=== PATIENT | female | born 1950 | race Caucasian/White ===

== ENCOUNTER 2016-11-29 12:16 | Inpatient (IN) ==
--- NOTE | 2016-11-29 13:04 | Emergency Department Note ---
Louis Keen Hilary, am scribing for, and in the presence of, Lalo Rondon MD 12: 59. Nela Keen James D, MD, personally performed the services described in this documentation, ascribed by Nu Myers in my presence, and it is both accurate and complete . Arrival - Arrival Chief Complaint: Chest Pain ED Nursing Triage Note: pt was transfered from [facility] for cp and sob Mode of Arrival: Stretcher Limitations: No Limitations Source: Patient, RN Notes Reviewed - History of Present Illness HPI Narrative: Pt is a 66 y/o white female brought into the ED via EMS from [facility] with c/o SOB which onset a few weeks ago. Pt confirms SOB, pain in her left shoulder blade, light headedness, headache and feet swelling but denies fever or nausea. Pt has a PMHx of HTN, NIDDM, Dyslipidemia, Pulmonary Embolism and DVT. No other complaints or problems stated in the ED. Onset (ago): week(s) Consistency: constant Severity: moderate Severity scale (1-10): 2 Allergies/Adverse Reactions: Allergies Allergy/AdvReac Type Severity Reaction Status Date / Time diphtheria,pertussis Allergy Unknown/Unable Verified 11/29/16 12:29 (acellular),te to obtain [From Boostrix Tdap] levofloxacin [From Levaquin] Allergy Unknown/Unable Verified 11/29/16 12:29 to obtain Home Medications: Home Medications Medication Instructions Recorded Confirmed Type Cholecalciferol (Vitamin D3) 50,000 unit PO Q7D 11/29/16 11/29/16 History [Vitamin D3] Citalopram Hydrobromide 20 mg PO DAILY 11/29/16 11/29/16 History [Citalopram HBr] Gabapentin [Gabapentin] 300 mg PO BEDTIME 11/29/16 11/29/16 History Insulin Aspart Prot/Insuln Asp 13 units SUBCUT QPM 11/29/16 11/29/16 History [NovoLOG Mix 70-30 FlexPen] Insulin Aspart Prot/Insuln Asp 17 units SUBCUT QAM 11/29/16 11/29/16 History [NovoLOG Mix 70-30 FlexPen] Metformin HCl [Metformin HCl] 1,000 mg PO BID 11/29/16 11/29/16 History Metoprolol Succinate 100 mg PO BID 11/29/16 11/29/16 History Ranitidine Tab [Zantac Tab] 150 mg PO DAILY 11/29/16 11/29/16 History Rosuvastatin Calcium [Rosuvastatin 20 mg PO BEDTIME 11/29/16 11/29/16 History Calcium] Solifenacin Succinate [Vesicare] 10 mg PO DAILY 11/29/16 11/29/16 History Valsartan/Hydrochlorothiazide 1 each PO DAILY 11/29/16 11/29/16 History [Valsartan-Hctz 320-12.5 mg Tab] Warfarin [Coumadin] 2 mg PO SUTUTHSA 11/29/16 11/29/16 History Warfarin [Coumadin] 3 mg PO MOWEFR 11/29/16 11/29/16 History glyBURIDE [Glyburide] 5 mg PO 1000,1700 11/29/16 11/29/16 History Review of System - Review of System 12 point system: reviewed and no additional remarkable complaints except as stated - Review of System Constitutional: Present: other (light headed). Absent: fever Respiratory: Present: respiratory distress (SOB) Musculoskeletal: Present: other (bilaterally lower swelling) Neurological: Present: headache Medical,Surgical,& Family Hx - Medical History Cardio: History of: Hypertension Endocrine: History of: Diabetes Mellitus (NIDDM), Dyslipidemia Respiratory: History of: Pulmonary Embolism Other: History of: Miscellaneous Medical Problems (dvt) - Social History Smoking Status: Never smoker Frequency of Alcohol Use: None Type of Drug Use: None Exam Physical Examination: GENERAL: This is a well-nourished, well-developed white female in no apparent distress. VITAL SIGNS: Temperature: 97.4 Pulse: 60 Respiratory: 20 Blood Pressure: 160/ 73 O2Sat: 90 HEENT: Head is normocephalic and atraumatic. Pupils are equally round and reactive to light. Extraocular movement are intact. Oropharynx is benign with moist mucous membranes. NECK: Neck is soft and supple without tenderness. There are no masses. There is no lymphadenopathy. LUNGS: Short of breath when she talks and O2 sats are low. Lungs are clear to auscultation bilaterally. Chest rises symmetrically. There is no chest wall tenderness. CV: Heart is regular rate and rhythm without murmurs, rubs, or gallops. ABDOMEN: Abdomen is soft, non-tender to palpation. There are no abnormal masses palpated. There is no organomegaly. Bowel sounds are present and active. SKIN: Skin is warm and dry. No rash. EXTREMITIES: Patient has full range of motion without tenderness. There is no pedal edema. NEUROLOGIC: Awake, alert, and oriented x4. Cranial nerves II through XII are grossly intact. There are no motorsensory deficits. PSYCHIATRIC: Normal affect. Normal mood. Vital Signs: Vital Signs Temperature 97.4 F L 11/29/16 12:23 Pulse Rate 60 11/29/16 12:23 Respiratory Rate 18 11/29/16 12:50 Blood Pressure 160/73 11/29/16 12:23 O2 Sat by Pulse Oximetry 90 L 11/29/16 12:23 Course - Consultations Consultation #1: Discussed with Dr. Urias. Patient will be seen by him in the emergency department. Time: 14:56 Results - Labs Lab Results: I have reviewed the patients labs Labs: Lab performed at [facility] and reviewed by me: Chemistry: Sodium 141, potassium 4.3, CO2 27, chloride 104, BUN 22, creatinine 1.4, glucose 231 Troponin less than 0.017 BNP 247 INR 1.79 CBC: WBCs 4400, hemoglobin 13.5, hematocrit 41.6, platelet count 151,000 Laboratory Tests 11/29/16 13:48 Troponin I < 0.015 - EKG EKG results: interpreted by ERMD - Impressions EKG: Normal sinus rhythm with rate of 54, normal ST-T waves, normal axis. - Diagnostic Findings Procedure: CT: report reviewed by me (CHEST: No evidence of pulmonary thromboembolism) Disposition Clinical Impression: Dyspnea, Chronic anticoagulation, History of DVT (deep vein thrombosis), History of pulmonary thromboembolus, Diabetes mellitus, Essential hypertension Case discussed with: patient Condition: Guarded
[2016-11-29] MEDS ORDERED: ONDANSETRON 4 MG/2 ML VIAL IV STA (13:20)
[2016-11-29] MEDS ORDERED: MORPHINE 2 MG/1 ML SYRINGE IV STA (13:20)
--- NOTE | 2016-11-29 13:29 | CT Report ---
CT of the chest with intravenous contrast, PE protocol. Indication: Dyspnea. Shortness of breath. 80 cc Omni 350. Axial images were obtained with sagittal and coronal reconstructions, 2-D and 3-D. No prior studies. There is a 5 mm hypodensity in the right lobe of the thyroid gland. There is no supraclavicular or axillary lymphadenopathy. The heart is normal in size. There is calcific plaque present within a normal caliber thoracic aorta. There is no evidence of pulmonary thromboembolism. Mild dependent hypoaeration. No consolidation. No suspicious masses. There is no hilar or mediastinal lymphadenopathy. Degenerative changes are noted within the spinal column. Bridging osteophytes are seen within the thoracic spine. Impression: No evidence of pulmonary thromboembolism. The CT exam was performed using one or more of the following dose reduction techniques: Automated exposure control, adjustment of the mA and/or kV according to patient size, or use of iterative reconstruction technique. PROCEDURE INTERPRETED AT [facility]PARTMENT OF RADIOLOG[facility] Final Report Signed by: Dr. Jessica Turner
[2016-11-29] MEDS ORDERED: MORPHINE 2 MG/1 ML SYRINGE ONE ×2 (13:37→22:57)
[2016-11-29] MEDS ORDERED: ONDANSETRON 4 MG/2 ML VIAL ONE (13:37)
--- NOTE | 2016-11-29 14:43 | EKG Report ---
Stationary ECG Study [facility] ER Test Date: 11/29/2016 12:22:03 PM Pat Name: DEBBIE RODRIGUEZ Department: Room: Gender: F Patient Relations Manager: : 1950 Requested by: Hasmukh Villegas Order Number: [id number] Hugo MD: TAMMIE ODEN Intervals [place] Rate: 54 P: 205 [place]: 88 QRS: 43 QRSD: 81 T: 24 QT: 459 QTc: 444 Interpretive Statements NORMAL SINUS RHYTHM, NORMAL ECG Electronically Signed On 11-30-16 07:08:35 CDT by TAMMIE ODEN [email or web address]
[2016-11-29] MEDS ORDERED: diphenhydrAMINE CAP 25 MG CAPSULE PO ONE (15:31)
[2016-11-29] MEDS ORDERED: DIAZEPAM 5 MG TABLET PO ONE (15:31)
[2016-11-29] MEDS ORDERED: GLUCAGON 1 MG VIAL IM PRN (15:32)
[2016-11-29] MEDS ORDERED: DEXTROSE 50% 25 GM/50 ML SYRINGE IV PRN (15:32)
[2016-11-29] MEDS ORDERED: LIDOCAINE 1% 20 ML VIAL ONE (15:33)
[2016-11-29] MEDS ORDERED: HEPARIN/NACL 0.9% 2 UNITS/ML 1,000 ML IV ONE (15:33)
[2016-11-29] MEDS ORDERED: hydrALAZINE 20 MG/1 ML VIAL IV PRN (15:34)
[2016-11-29] MEDS ORDERED: MIDAZOLAM 2 MG/2 ML VIAL ONE ×2 (15:39→16:05)
[2016-11-29] MEDS ORDERED: fentaNYL 100 MCG/2 ML VIAL ONE (15:39)
--- NOTE | 2016-11-29 15:39 | Cardiology History & Physical ---
Assessment and Plan - Time spent with patient Time spent with patient: Greater than 30 minutes (Chart review examination interview orders discussion with Dr. Edwards) (1) Unstable angina Status: Acute Assessment and plan: Except for smoking this patient has every identifiable risk factor for coronary artery disease she is long-standing diabetic hypertensive dyslipidemic with a family history and typical progressive symptoms initiating his fatigue progressing to dyspnea and chest discomfort radiating to the left scapula and down the left arm. She has renal insufficiency minimally with a creatinine of 1.4 she did have a contrast bolus with CT PE protocol to rule out pulmonary embolism there is no evidence of pulmonary embolism. Her INR is 1.79. She has had recurrent DVTs with subtherapeutic INRs and I think given the situation at time currently with escalation of her symptoms now pain at rest we should proceed with left heart catheterization selective coronary angiography possible Paula coronary mention. I discussed risk benefits and options with the patient and her family also discussed with her Lead Nurse physician Dr. Shasta Edwards who will be willing to catheter today. If this is negative we will look for other causes. I feel this represents anginal equivalent in this diabetic hypertensive dyslipidemic female Current Visit: Yes (2) Dyspnea Status: Acute Current Visit: Yes Qualifiers: Dyspnea type: dyspnea on exertion Qualified Code(s): R06.09 - Other forms of dyspnea (3) Chronic anticoagulation Status: Chronic Current Visit: Yes (4) History of DVT (deep vein thrombosis) Status: Chronic Current Visit: Yes (5) Diabetes mellitus Status: Chronic Current Visit: Yes Qualifiers: Diabetes mellitus type: type 2 (6) Essential hypertension Status: Chronic Current Visit: Yes History of Present Illness Chief complaint: Chest pain shortness of breath History of present illness: Ms. White is a 66 year old female patient of Ms. Nakia Cali in [place] who is the nurse for Dr. Brambila in [place]. The patient had at least 3 weeks of severe dyspnea that has even altered her ability to speak in sentences. 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 Brambila clinic the patient has noticed progressive shortness of breath. Because of her history of DVT and pulmonary emboli on chronic anticoagulation therapy she has been attuned to her pulse oxes and states that they have been all okay. She states that the discomfort that she has in her chest and she is very reluctant to use the word pain along with the shortness of breath is distinctly different than the discomfort that she had with her previous pulmonary emboli. She presented to the emergency room at [facility] today from Dr. Brambila's clinic at his insistence because she was unable to speak in complete sentences. She has very carefully not use the word pain or discomfort during the description of her symptoms over the last 3 weeks. She states that that change this morning while in the shower she had pain under her left scapula that went into her left arm which she describes as a numbness. The patient did not have nausea or diaphoresis. Both of her parents had coronary artery disease in their 70s as there cause of . She has known about diagnosis of diabetes since 2005. She has hypertension and dyslipidemia both of which are well treated. She states that she has had at least 4 DVTs in the past and the first in 1983 was associated with pulmonary embolism. Each time her warfarin is stopped she has DVTs. She sleeps on one and a half pillows at night. She has chronic lower extremity edema because of her venous insufficiency wears OLIVA hose every day. Home Medications Medication Instructions Recorded Confirmed Type Cholecalciferol (Vitamin D3) 50,000 unit PO Q7D 11/29/16 11/29/16 History [Vitamin D3] Citalopram Hydrobromide 20 mg PO DAILY 11/29/16 11/29/16 History [Citalopram HBr] Gabapentin [Gabapentin] 300 mg PO BEDTIME 11/29/16 11/29/16 History Insulin Aspart Prot/Insuln Asp 13 units SUBCUT QPM 11/29/16 11/29/16 History [NovoLOG Mix 70-30 FlexPen] Insulin Aspart Prot/Insuln Asp 17 units SUBCUT QAM 11/29/16 11/29/16 History [NovoLOG Mix 70-30 FlexPen] Metformin HCl [Metformin HCl] 1,000 mg PO BID 11/29/16 11/29/16 History Metoprolol Succinate 100 mg PO BID 11/29/16 11/29/16 History Ranitidine Tab [Zantac Tab] 150 mg PO DAILY 11/29/16 11/29/16 History Rosuvastatin Calcium [Rosuvastatin 20 mg PO BEDTIME 11/29/16 11/29/16 History Calcium] Solifenacin Succinate [Vesicare] 10 mg PO DAILY 11/29/16 11/29/16 History Valsartan/Hydrochlorothiazide 1 each PO DAILY 11/29/16 11/29/16 History [Valsartan-Hctz 320-12.5 mg Tab] Warfarin [Coumadin] 2 mg PO SUTUTHSA 11/29/16 11/29/16 History Warfarin [Coumadin] 3 mg PO MOWEFR 11/29/16 11/29/16 History glyBURIDE [Glyburide] 5 mg PO 1000,1700 11/29/16 11/29/16 History Allergies Allergy/AdvReac Type Severity Reaction Status Date / Time diphtheria,pertussis Allergy Unknown/Unable Verified 11/29/16 12:29 (acellular),te to obtain [From Boostrix Tdap] levofloxacin [From Levaquin] Allergy Unknown/Unable Verified 11/29/16 12:29 to obtain - Constitutional Constitutional: Present: fatigue, malaise. Absent: anorexia, chills, fever(s), frequent falls, night sweats, weight gain - EENT Eyes: Absent: blurry vision, diplopia Ears: Absent: decreased hearing, ear discharge Nose, mouth and throat: Present: headache(s). Absent: dysphagia, hoarseness, lip swelling, neck pain, tongue swelling - Cardiovascular Cardiovascular: Present: chest pain at rest, chest pain with activity, dyspnea, dyspnea on exertion, edema, lightheadedness, orthopnea - Respiratory Respiratory: Present: dyspnea, dyspnea on exertion. Absent: cough, hemoptysis, wheezing, snoring - Gastrointestinal Gastrointestinal: Absent: abdominal pain, bloating, constipation, cramping, diarrhea, dyspepsia, dysphagia, heartburn, melena, odynophagia - Genitourinary Genitourinary: Absent: abnormal vaginal bleeding, flank pain, menorrhagia - Musculoskeletal Musculoskeletal: Absent: arthralgias, back pain, joint swelling - Neurological Neurological: Present: headache(s). Absent: abnormal gait, confusion, convulsions, disequilibrium, frequent falls, radicular pain - Psychiatric Psychiatric: Absent: anxiety, depression, homicidal ideation, memory loss, suicidal ideation, visual hallucinations - Endocrine Endocrine: Absent: cold intolerance, heat intolerance - Hematologic/Lymphatic Hematologic/Lymphatic: Absent: easy bleeding, easy bruising Medical,Surgical,& Family Hx - Medical History Cardio: History of: Hypertension Endocrine: History of: Diabetes Mellitus (NIDDM), Dyslipidemia Respiratory: History of: Pulmonary Embolism (With recurrent DVTs) Genitourinary: No history of: Bladder Problem Gastrointestinal: No history of: Bowel Obstruction Other: History of: Miscellaneous Medical Problems (dvt) - Surgical History Abdominal Surgeries: Surgical HX of: Cholecystectomy Reproductive Surgeries: Surgical HX of;: Hysterectomy - Family History Family History: Reports;: Family Heart Disease - Social History Smoking Status: Never smoker Frequency of Alcohol Use: None Type of Drug Use: None Marital Status: Lives With:: Spouse Functional capacity: independent ambulation (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 ) Cardiology Physical Exam - Constitutional Vitals: Vital Signs Temp Pulse Resp BP Pulse Ox 97.4 F L 60 18 160/73 90 L 11/29/16 12:23 11/29/16 12:23 11/29/16 12:50 11/29/16 12:23 11/29/16 12:23 Intake and Output 11/28/16 11/29/16 11/29/16 23:59 07:59 15:59 Intake Total 150 / 150 Balance 150 / 150 Intake: Intake - Additional IV 150 / 150 Volume (mLs) Left Antecubital 150 / 150 Other: Weight 96.162 kg Patient Weight 11/29/16 23:59 Weight 96.162 kg General appearance: over weight - Head Head exam: Present: normal inspection - Eye Eye exam: Present: EOMI Pupils: Present: SHARONA - ENT ENT exam: Present: normal exam - Neck Neck exam: Present: normal inspection - Respiratory Respiratory exam: Present: clear to auscultation bilaterally - Cardiovascular Cardiovascular exam: Present: regular rate and rhythm - GI/Abdominal GI/Abdominal exam: Present: normal bowel sounds - Extremities Exam Extremities exam: Present: normal inspection - Back Exam Back exam: Present: normal inspection - Neurological Exam Neurological exam: Present: alert, oriented X3 - Psychiatric Psychiatric exam: Present: anxious, depressed - Skin Skin exam: Present: normal color, warm Result/EKG - Labs Labs: Laboratory Results - last 24 hr 11/29/16 13:48 Troponin I < 0.015 - Impressions Impressions: Labs reviewed from [facility] INR is 1.79 creatinine is 1.4 H&H are preserved platelets and white count are normal. The troponin and pro-beta natruretic peptide are normal - EKG EKG results: interpreted by me, WNL
[2016-11-29] MEDS ORDERED: DIAZEPAM 5 MG TABLET ONE (15:45)
[2016-11-29] MEDS ORDERED: diphenhydrAMINE CAP 50 MG CAPSULE ONE (15:46)
--- NOTE | 2016-11-29 15:52 | History and Physical Update ---
Sedation H&P Update - Dictation Physical: refer to H&P completed by admitting physician - Physical Exam Mental Status: alert and oriented Heart: regular rate and rhythm Lung: clear to auscultation Abdomen: within normal limits Vitals: within normal limits History and Physical Changes: I personally discussed this case with Dr. Urias. - Sedation Plan for Sedation: moderate Patient Consent: Procedure disscussed with patient and patinet has consented., Risks and benefits were discussed with patient,including infection,, bleeding, injury to surrounding structures, seizure, temporary nerve, Patient understands and accepts potential risks/benefits and agrees to, proceed. ASA Class: IV Airway Assessment: Class II: Soft palate, uvula, fauces visible
--- NOTE | 2016-11-29 16:49 | Cardiology Operative Report ---
Date of Procedure:: 11/29/16 Pre-op diagnosis: Shortness of breath Post-op diagnosis: other (No significant obstructive coronary artery disease) Procedure: 1. Selective left and right coronary angiography. 2. Left heart catheterization with left ventriculogram. 3. Right iliac angiography to rule out vascular complications. 4. Application of Mynx hemostasis device to the right femoral arteriotomy site. Impression: 1. No significant obstructive coronary artery disease. 2. Right dominant coronary arteries. 3. Ejection fraction 70 %. 4. Angiographically normal right iliac artery without evidence of vascular complications. Plan: 1. Medical management. 2. Noncardiac workup if symptoms. Equipment: Diagnostic 6 Kiswahili JL4, JR4, pigtail catheters, Mynx. Hemodynamics: Aortic pressure 103/56 mmHg, left ventricular pressure 90/0 mmHg, LVEDP 9 mmHg Sedation: Versed 3 mg, fentanyl 75 mcg Procedure: After informed consent was obtained the patient was prepped and draped in sterile fashion. The right groin was infiltrated with 1% lidocaine and the right femoral artery was accessed via modified Seldinger technique using a micropuncture needle and a 6 Kiswahili femoral arterial sheath was placed. All catheter exchanges were performed over a guidewire under fluoroscopic guidance. Diagnostic 6 Kiswahili JL4 and JR4 catheters were advanced to the left and right coronary arteries respectively and multiple cineangiograms were performed in varying degrees of obliquity and angulation. Thereafter a pigtail catheter was advanced into the left ventricle where hemodynamics were obtained followed by left ventriculogram. At conclusion of the procedure right iliac angiography was performed to rule out vascular complications. A Mynx hemostasis device was unsuccessfully applied to the right femoral arteriotomy site. Findings: 1. The left main artery is angiographically normal. 2. The left anterior descending artery extends to the apex. It trifurcates in the mid segment and then becomes very small. There is no significant obstructive disease. 3. There is not an intermediate ramus branch. 4. The circumflex artery is a very small system that gives rise to a tiny first marginal artery and a small second marginal artery. There is no significant obstructive disease. 5. The right coronary artery is dominant and free of significant disease. 6. Ejection fraction is 70 % with normal anterior, inferior and apical wall motion. 7. No significant mitral regurgitation. 8. No significant aortic stenosis. 9. The right iliac artery is angiographically normal without evidence of vascular complications. Contrast use: Omnipaque 62 cc Fluoro time: 1.26 minutes Complications: none Specimens removed: none Devices implanted: Mynx Anesthesia: moderate conscious sedation Surgeon / Physician: Shasta Edwards Baked And Graphite Inspector: none (Kev Vigil) Estimated blood loss: minimal Specimens: none sent Condition: stable Disposition: floor
[2016-11-29] MEDS: SODIUM CHLORIDE 0.45% 1,000 ML IV SCH (19:21)
[2016-11-29] MEDS: INSULIN REGULAR 100 UNIT/ML SUBCUT SCH (19:22)
[2016-11-29] MEDS: ALBUTEROL/IPRATROPIUM 3 ML NEB RESP TX SCH (20:10)
[2016-11-29] MEDS: ROSUVASTATIN 20 MG TABLET PO SCH (20:49)
[2016-11-29] MEDS: ACETAMINOPHEN 325 MG TABLET PO PRN (20:50)
[2016-11-29] MEDS: METOPROLOL SUCCINATE XL 100 MG TABLET PO SCH (20:51)
[2016-11-29] MEDS: INSULIN ASPART PROTAMINE/ASPART 70/30 100 UNIT/ML SUBCUT SCH (20:51)
[2016-11-29] MEDS: glyBURIDE 5 MG TABLET PO SCH (20:51)
[2016-11-29] MEDS: GABAPENTIN 300 MG CAPSULE PO SCH (20:51)
[2016-11-29] MEDS ORDERED: KETOROLAC 30 MG/1 ML VIAL IV ONE (22:58)
[2016-11-29] MEDS: MORPHINE 2 MG/1 ML SYRINGE IV PRN (23:05)
[2016-11-30] MEDS: ALBUTEROL/IPRATROPIUM 3 ML NEB RESP TX SCH ×4 (00:32→18:53)
[2016-11-30] MEDS: SODIUM CHLORIDE 0.45% 1,000 ML IV SCH ×4 (02:44→18:17)
--- NOTE | 2016-11-30 02:44 | EKG Report ---
Stationary ECG Study [facility] Test Date: 11/29/2016 10:41:55 PM Pat Name: DEBBIE RODRIGUEZ Department: Room: 292 Gender: F Commercial Project Manager: Tony : 1950 Requested by: Maura Franklin Order Number: [id number] Reading MD: NIKOLAS AUGUSTE Intervals [place] Rate: 49 P: 25 NE: 142 QRS: 29 QRSD: 84 T: 6 QT: 449 QTc: 420 Interpretive Statements SINUS BRADYCARDIA WITH PVC Electronically Signed On 11-30-16 12:10:00 CDT by NIKOLAS AUGUSTE [id number]
--- NOTE | 2016-11-30 07:15 | XRay Report ---
History: Chest pain Date: 11/30/2016 Study: Chest x-ray PA and lateral Comparison exam: 11/29/2016 The cardiac silhouette is not enlarged. The mediastinal contours are stable. The pulmonary vasculature is not engorged. There is no pleural effusion. There is some minor platelike scar or subsegmental atelectasis in the lung bases. There is no confluent infiltrate to suggest pneumonia. There is osteopenia and moderate thoracic spondylosis. Surgical clips overlie the right upper abdomen from previous cholecystectomy. Impression: No definite acute cardiopulmonary process. Minimal platelike scar or subsegmental atelectasis in the lung bases PROCEDURE INTERPRETED AT [facility] DEPARTMENT OF RADIOLOGY Final Report Signed by: Dr. Naomi Pate
--- NOTE | 2016-11-30 07:40 | EKG Report ---
Stationary ECG Study [facility] Test Date: 11/30/2016 7:38:50 AM Pat Name: DEBBIE RODRIGUEZ Department: Room: 292 Gender: F Terrazzo Finisher: VALENTINO : 1950 Requested by: Maura Franklin Order Number: [id number] Reading MD: NIKOLAS AUGUSTE Intervals [place] Rate: 55 P: 43 NM: 127 QRS: 19 QRSD: 84 T: 9 QT: 453 QTc: 442 Interpretive Statements SINUS RHYTHM Electronically Signed On 11-30-16 12:31:05 CDT by NIKOLAS AUGUSTE [id number]
[2016-11-30 07:48] LABS: Basophils % 0.9 % (0.0-0.8); Eosinophils # 0.1 10*3/uL (0.0-0.87); Eosinophils % 4.2 % (0.00-10.9); Hematocrit 34.3 VOL% (35.7-47.0); Hemoglobin 11.3 GM/DL (12.0-16.0); Immature Granulocytes % 0.3 %; Immature Granulocytes Absolute 0.01 #; Lymphocytes # 1.1 10*3/uL (1.4-4.0); Lymphocytes % 32.7 % (21.3-54.2); Mean Corpuscular HGB Conc 32.9 GM/DL (32-36); Mean Corpuscular Hemoglobin 30 PG (27-34); Mean Corpuscular Volume 90.7 FL (87-102); Mean Platelet Volume 12.7 FL (9.6-12.0); Monocytes # 0.4 10*3/uL (0.11-0.8); Monocytes % 10.9 % (1.7-12.7); Neutrophils # 1.7 10*3/uL (1.4-7.4); Red Blood Count 3.78 MC/CUMM (3.8-5.5); Red Cell Distribution Width 14.6 % (9.3-17.3); White Blood Count 3.3 T/CUMM (4-12)
[2016-11-30 07:51] LABS: Platelet Count 98 T/CUMM (130-400)
[2016-11-30 08:06] LABS: Giant Platelets Few; Hypochromasia 1+; Microcytosis Slight; Platelet Estimate Decreased
--- NOTE | 2016-11-30 08:38 | Pulmonology Consult Note ---
Assessment and Plan (1) Pancytopenia Status: Acute Assessment and plan: Her hematocrit is 34, platelet count 98,000, white blood count 3300. Looking back at her labs from 2007 they were roughly the same then. Nevertheless with her dyspnea I think we should get this evaluated further. Will ultrasound spleen as well. Current Visit: Yes (2) Hoarseness Status: Acute Assessment and plan: She has had problems with intermittent hoarseness for years. Probably allergic rhinitis. Will get sinus x-rays. 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 Also aggravated by exercise. No clear-cut indication for the cause of it at present. She has had pulmonary emboli in the past. Need to be sure she does not have pulmonary hypertension related to that or something else. Also will obtain PFTs. Physical deconditioning may be playing a part. Postnasal drip with congestion from that could be a part. Coronary disease has been ruled out by catheterization. Current Visit: Yes Qualifiers: Dyspnea type: dyspnea on exertion Qualified Code(s): R06.09 - Other forms of dyspnea (4) Chronic anticoagulation Status: Chronic Assessment and plan: She has been on Coumadin for 25+ years. She is compliant with her PT/INR checked. Current Visit: Yes (5) History of DVT (deep vein thrombosis) Status: Chronic Assessment and plan: Legs are not swollen or painful at present. Will obtain ultrasound to be sure there is no persistent DVT. 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 She has noted over the last 3 weeks that she gets short of breath sometimes talking and sometimes with effort. She denies any significant cough. She does have some intermittent hoarseness and a postnasal drip. She has never been a smoker. No history of asthma. Pertinent pulmonary history is that she had deep vein thrombosis and a pulmonary embolus in 1983. Apparently she had DVT 3 more times the last time in 1991. She has been on anticoagulants ever since then. She was hospitalized in 2007 with MRSA pneumonia and almost required mechanical ventilation. She had a superficial phlebitis at that time. She chronically takes Coumadin and checks her oxygen saturation frequently and they have been okay until she had some desaturation the day of admission. She was having chest tightness associated with these episodes. She has had a left heart cath showing normal coronaries and an ejection fraction of 70%. I was asked to see her to see if there is a pulmonary cause for her symptoms. She relates to me that she is also having some pain under her left scapula. She does have some tenderness there. She has not coughed up any blood she has not had any purulent sputum. She has not had sinus x-rays. She does have chronic hoarseness. She wears support hose all the time. She does not do any regular exercise other than at work. Home Medications Medication Instructions Recorded Confirmed Type Cholecalciferol (Vitamin D3) 50,000 unit PO Q7D 11/29/16 11/29/16 History [Vitamin D3] Citalopram Hydrobromide 20 mg PO DAILY 11/29/16 11/29/16 History [Citalopram HBr] Gabapentin [Gabapentin] 300 mg PO BEDTIME 11/29/16 11/29/16 History Insulin Aspart Prot/Insuln Asp 13 units SUBCUT QPM 11/29/16 11/29/16 History [NovoLOG Mix 70-30 FlexPen] Insulin Aspart Prot/Insuln Asp 17 units SUBCUT QAM 11/29/16 11/29/16 History [NovoLOG Mix 70-30 FlexPen] Metformin HCl [Metformin HCl] 1,000 mg PO BID 11/29/16 11/29/16 History Metoprolol Succinate 100 mg PO BID 11/29/16 11/29/16 History Ranitidine Tab [Zantac Tab] 150 mg PO DAILY 11/29/16 11/29/16 History Rosuvastatin Calcium [Rosuvastatin 20 mg PO BEDTIME 11/29/16 11/29/16 History Calcium] Solifenacin Succinate [Vesicare] 10 mg PO DAILY 11/29/16 11/29/16 History Valsartan/Hydrochlorothiazide 1 each PO DAILY 11/29/16 11/29/16 History [Valsartan-Hctz 320-12.5 mg Tab] Warfarin [Coumadin] 2 mg PO SUTUTHSA 11/29/16 11/29/16 History Warfarin [Coumadin] 3 mg PO MOWEFR 08/22/17 08/22/17 History glyBURIDE [Glyburide] 5 mg PO 1000,1700 11/29/16 11/29/16 History Allergies Allergy/AdvReac Type Severity Reaction Status Date / Time diphtheria,pertussis Allergy Unknown/Unable Verified 11/29/16 12:29 (acellular),te to obtain [From Boostrix Tdap] levofloxacin [From Levaquin] Allergy Unknown/Unable Verified 11/29/16 12:29 to obtain 12 point system: reviewed and no additional remarkable complaints except as stated - Constitutional Constitutional: Present: fever(s) (She thinks she has had fever a couple times in the last 3 weeks) - EENT Nose, mouth and throat: Present: hoarseness - Cardiovascular Cardiovascular: Present: dyspnea, dyspnea on exertion, edema (Chronic leg edema) - Respiratory Respiratory: Present: dyspnea, dyspnea on exertion - Musculoskeletal Musculoskeletal: Present: back pain (Pain and tenderness underneath her left scapula) Exam (Pulmonay) H&P - Constitutional Vitals: Period Temp Pulse Resp BP Sys/Manning Pulse Ox Last 24 Hr 97.0 F-97.5 F 55-62 16-20 101-198/55-91 88-100 Exam: Vital signs are normal. O2 sat 99% on 2 L. Pupils react to light. Throat is clear. Neck supple no bruits. No jugular venous distention. Chest is clear equal breath sounds. Heart normal rate and rhythm no murmurs no rubs no gallops. Abdomen soft nontender no masses. Liver spleen kidney not palpably enlarged. Extremities no clubbing cyanosis. Only a trace of edema. She is wearing knee-high OLIVA hose. Calves are nontender. Homans test negative. Medical,Surgical,& Family Hx - Medical History Cardio: History of: Hypertension Endocrine: History of: Diabetes Mellitus (IDDM), Diabetes Mellitus (NIDDM), Dyslipidemia Respiratory: History of: Pulmonary Embolism (With recurrent DVTs) Genitourinary: No history of: Bladder Problem Gastrointestinal: No history of: Bowel Obstruction Other: History of: Miscellaneous Medical Problems (dvt) - Surgical History Abdominal Surgeries: Surgical HX of: Cholecystectomy Reproductive Surgeries: Surgical HX of;: Hysterectomy - Family History Family History: Reports;: Family Heart Disease - Social History Smoking Status: Never smoker Frequency of Alcohol Use: None Type of Drug Use: None Results - Labs CBC & BMP: 11/30/16 07:37 Lab Results: I have reviewed the past 24 hour labs - Diagnostic Findings Procedure: Chest x-ray: image reviewed by me (Chest x-ray is within normal limits), CT - chest: image reviewed by me (Minimal basilar atelectasis on CT. No signs of pulmonary embolus. No lesion seen.)
[2016-11-30 08:55] LABS: Calcium 7.5 MG/DL (8.5-10.1); Osmolality,Calculated 286.3 MOS/KG (273-304); Potassium 4.2 MMOL/L (3.5-5.1)
[2016-11-30] MEDS ORDERED: ERGOCALCIFEROL 50,000 UNIT CAPSULE PO SCH (09:00)
--- NOTE | 2016-11-30 09:13 | XRay Report ---
Sinus series. 3 views. Indication: Hoarseness and postnasal drip. There is mucosal thickening seen in the frontoethmoidal recess areas and within the right maxillary sinus. No air-fluid levels. No bony sclerosis or erosion. Impression: Mild findings of chronic sinusitis. PROCEDURE INTERPRETED AT [facility] DEPARTMENT OF RADIOLOGY Final Report Signed by: Dr. Jessica Turner
[2016-11-30 09:17] LABS: Risk Ratio 3.73; VLDL CHOLESTEROL 66.8 MG/DL
--- NOTE | 2016-11-30 10:19 | Ultrasound Report ---
Bilateral lower extremity venous Doppler with crawley scale, Spectral Doppler and color-flow analysis performed and interpreted. Indication: Leg swelling, shortness of breath, previous history of DVT. Scanning over both common femoral veins, superficial femoral veins, greater saphenous veins and popliteal veins demonstrates normal compressibility, color flow, and augmentation. Impression: No evidence of DVT seen in either lower extremity. The Ultrasound images were captured and stored. PROCEDURE INTERPRETED AT [facility] DEPARTMENT OF RADIOLOGY Final Report Signed by: Dr. Jessica Turner
[2016-11-30] MEDS: SOLIFENACIN 5 MG TABLET PO SCH (11:31)
[2016-11-30] MEDS: VALSARTAN 160 MG TABLET PO SCH (11:31)
[2016-11-30] MEDS: CITALOPRAM 20 MG TABLET PO SCH (11:32)
[2016-11-30] MEDS: hydroCHLOROthiazide 12.5 MG CAPSULE PO SCH (11:32)
[2016-11-30] MEDS: FAMOTIDINE 20 MG TABLET PO SCH (11:32)
[2016-11-30] MEDS: glyBURIDE 5 MG TABLET PO SCH ×2 (11:32→17:59)
[2016-11-30] MEDS: INSULIN ASPART PROTAMINE/ASPART 70/30 100 UNIT/ML SUBCUT SCH ×2 (11:33→21:28)
[2016-11-30] MEDS: METOPROLOL SUCCINATE XL 100 MG TABLET PO SCH ×2 (11:35→21:30)
[2016-11-30] MEDS: INSULIN REGULAR 100 UNIT/ML SUBCUT SCH ×4 (11:37→21:28)
--- NOTE | 2016-11-30 12:40 | Ultrasound Report ---
US abdomen Indication: Pancytopenia. Evaluate spleen. ULTRASOUND ABDOMEN, COMPLETE Comparison: 01/10/2008 Findings: Liver: Unremarkable Gallbladder: Surgically absent Common bile duct: 7 mm Aorta: No aneurysm IVC: Patent Spleen: Normal size, volume 118 cc. Pancreas: Unremarkable Right kidney: 8.6 cm length. No mass, cyst, calcification or obstruction Left kidney: 9.3 cm length. No mass, cyst, calcification or obstruction Image quality degraded by obesity. Impression: Normal size spleen. Postoperative changes cholecystectomy. 7 mm common bile duct consistent with absence of gallbladder. PROCEDURE INTERPRETED AT [facility] DEPARTMENT OF RADIOLOGY Final Report Signed by: Yahir Kumar M.D.
--- NOTE | 2016-11-30 17:00 | Cardiology Progress Note ---
Imer Keen Lesley, NAILA, am scribing for, and in the presence of, BridgettKaykay, DO 17:00. Assessment and Plan - Time spent with patient Time spent with patient: Greater than 30 minutes (Assessment, documentation, and plan of care) (1) Dyspnea Status: Acute Assessment and plan: SEE PLAN OF CARE LISTED BELOW Current Visit: Yes Qualifiers: Dyspnea type: dyspnea on exertion Qualified Code(s): R06.09 - Other forms of dyspnea (2) Chronic anticoagulation Status: Chronic Assessment and plan: SEE PLAN OF CARE LISTED BELOW Current Visit: Yes (3) Diabetes mellitus Status: Chronic Assessment and plan: SEE PLAN OF CARE LISTED BELOW Current Visit: Yes Qualifiers: Diabetes mellitus type: type 2 (4) Essential hypertension Status: Chronic Assessment and plan: SEE PLAN OF CARE LISTED BELOW Current Visit: Yes (5) History of DVT (deep vein thrombosis) Status: Chronic Assessment and plan: SEE PLAN OF CARE LISTED BELOW Current Visit: Yes (6) Dyslipidemia Status: Chronic Assessment and plan: SEE PLAN OF CARE LISTED BELOW Current Visit: Yes Cardiology - PN: 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 White is a 66-year-old WF, who presented to the [facility] ER with complaints of progressive dyspnea over the last 3 weeks. The patient also describes discomfort in the left scapula area and radiated into the left arm while in the shower. Patient described the discomfort as numbness and noted that this happened once yesterday prior to presenting to ER. She presented to the emergency room at [facility] because she was unable to speak in complete sentences due to dyspnea. She was transferred to our facility for care. Patient has cardiac risk factors including hypertension, dyslipidemia, chronic renal insufficiency, diabetes, positive family history, obesity, advanced age, recurrent DVTs and PE, and chronic anticoagulation. The decision was made to perform a left heart cath on the patient due to her presentation and cardiac risk factors. Left heart revealed no significant obstructive coronary artery disease. Right dominant coronary arteries with an ejection fraction of 70%. The patient has been housed on telemetry post-cath. Pulmonary medicine was consulted. Chest x- ray is unremarkable, minor scarring noted in the lung bases. EKG shows sinus rhythm. X-ray of the sinuses, venous Dopplers, abdominal ultrasound result are all pending. Echocardiogram is pending. Labs reviewed today: WBCs 3.3, H&H 11 and 34, electrolytes WNL, creatinine 1.1, triglycerides 334, cholesterol 97, LDL 37, HDL 26. Troponin unremarkable. Blood pressure is well controlled, sinus bradycardia noted on telemetry. Patient is seen lying in bed this morning. She denies complaints. She does report that she had an episode of the left scapular pain during the night, and reports this is relieved with morphine. She is noticeably dyspneic with conversation. ASSESSMENT/PLAN: 1. DYSPNEA -etiology unknown, pulmonary consult, oxygen via nasal cannula. 2. HYPERTENSION -continue medications and adjust meds accordingly. 3. DIABETES -Accu-Cheks with SSI. 4. CHRONIC ANTICOAGULATION -will restart warfarin. 5. HISTORY OF DVT -CT chest negative for PE, venous Dopplers negative. 6. DYSLIPIDEMIA -continue Crestor, cardiac diet. Exam (Progress Note) - Constitutional Vitals: Period Temp Pulse Resp BP Sys/Manning Pulse Ox Last 24 Hr 97 F-97.5 F 53-62 16-20 101-198/55-91 88-100 Exam: General: Appears well with no apparent distress. Pleasant and cooperative. Appears comfortable. HEENT: PERRL, normocephalic, atraumatic. Mucous membranes moist. No jaundice noted. Conjunctiva moist and clear, sclerae anicteric. Neck: No JVD/HJR, no thyromegaly or lymphadenopathy noted. No carotid bruit appreciated. Cardiac: Regular rate and rhythm. No murmur rub or gallop. PMI is nondisplaced. Lungs: Clear to auscultation without accessory muscle use to assist the respiratory pattern. Oxygen in use via nasal cannula. Dyspnea noted with conversation. Abdomen: Soft, bowel sounds normoactive. Nontender and nondistended. No abdominal bruit or thrill noted. No masses noted. Musculoskeletal: No fluid collection. Full range of motion is noted to all extremities in bed. Extremities: No clubbing, cyanosis noted. No edema noted. Upper extremity pulses 2+. Lower extremity pulses 2+. Capillary refill less than 3 seconds. Dressing removed from right groin, soft, no bleeding, no bruit auscultated. Skin: No unusual lesions or rashes. No skin breakdown appreciated. Neuro: Awake, alert and oriented 3. Moves all extremities well without hemiparesis or paralysis. No essential tremor is appreciated. Result/EKG - Labs CBC & BMP: 11/30/16 07:37 11/30/16 07:37 Lab Results: I have reviewed the past 24 hour labs Labs: Laboratory Results - last 24 hr 11/29/16 11/29/16 11/30/16 13:48 20:26 07:37 WBC 3.3 L RBC 3.78 L Hgb 11.3 L Hct 34.3 L MCV 90.7 MCH 30 MCHC 32.9 RDW 14.6 Plt Count 98 L MPV 12.7 H Neut % (Auto) 51.0 Lymph % (Auto) 32.7 Benson % (Auto) 10.9 Eos % (Auto) 4.2 Baso % (Auto) 0.9 H Neut # (Auto) 1.7 Lymph # (Auto) 1.1 L Benson # (Auto) 0.4 Eos # (Auto) 0.1 Baso # (Auto) 0.0 Immature Gran % 0.3 Nucleated RBC % 0.0 Immature Gran # 0.01 Nucleated RBCs # 0.00 Platelet Estimate Decreased Giant Platelets Few Immature Plt Fraction 0.0 Hypochromasia 1+ Microcytosis Slight Morphology Comment Sodium Potassium Chloride Carbon Dioxide Anion Gap BUN Creatinine GFR Calculation BUN/Creatinine Ratio Glucose POC Glucose 187 H Calculated Osmolality Calcium Troponin I < 0.015 Triglycerides Cholesterol LDL Cholesterol VLDL Cholesterol HDL Cholesterol Heart Disease Risk Ratio 11/30/16 11/30/16 11/30/16 07:37 07:37 08:16 WBC RBC Hgb Hct MCV MCH MCHC RDW Plt Count MPV Neut % (Auto) Lymph % (Auto) Benson % (Auto) Eos % (Auto) Baso % (Auto) Neut # (Auto) Lymph # (Auto) Benson # (Auto) Eos # (Auto) Baso # (Auto) Immature Gran % Nucleated RBC % Immature Gran # Nucleated RBCs # Platelet Estimate Giant Platelets Immature Plt Fraction Hypochromasia Microcytosis Morphology Comment Sodium 141 Potassium 4.2 Chloride 107 Carbon Dioxide 26 Anion Gap 12.2 BUN 18 Creatinine 1.10 H GFR Calculation 63 BUN/Creatinine Ratio 16.00 Glucose 165 H POC Glucose 178 H Calculated Osmolality 286.3 Calcium 7.5 L Troponin I Triglycerides 334 H Cholesterol 97 LDL Cholesterol 37.0 VLDL Cholesterol 66.8 HDL Cholesterol 26 L Heart Disease Risk Ratio 3.73 11/30/16 11:53 WBC RBC Hgb Hct MCV MCH MCHC RDW Plt Count MPV Neut % (Auto) Lymph % (Auto) Benson % (Auto) Eos % (Auto) Baso % (Auto) Neut # (Auto) Lymph # (Auto) Benson # (Auto) Eos # (Auto) Baso # (Auto) Immature Gran % Nucleated RBC % Immature Gran # Nucleated RBCs # Platelet Estimate Giant Platelets Immature Plt Fraction Hypochromasia Microcytosis Morphology Comment Sodium Potassium Chloride Carbon Dioxide Anion Gap BUN Creatinine GFR Calculation BUN/Creatinine Ratio Glucose POC Glucose 273 H Calculated Osmolality Calcium Troponin I Triglycerides Cholesterol LDL Cholesterol VLDL Cholesterol HDL Cholesterol Heart Disease Risk Ratio - Diagnostic Findings Procedure: Chest x-ray: report reviewed by me, Ultrasound: report reviewed by me , X-ray: report reviewed by me - EKG EKG results: sinus rhythm EKG shows: bradycardia IBridgett Shea, DO, personally performed the services described in this documentation, ascribed by Cheryl Willams NP in my presence, and it is both accurate and complete 700 .
[2016-11-30] MEDS ORDERED: WARFARIN 5 MG TABLET PO ONE (18:00)
--- NOTE | 2016-11-30 18:55 | ECHO Report ---
Rupal White Exam Date: 11/30/2016 10:11 Referring Physician: Technologist: joan Contreras ARDMS, RVT Age: 66 Ht (in): 69 Wt (lb): 212 Gender: F Exam Location: [facility] Echo Indications: Dyspnea, unspecified, Other fatigue, NIDDM, Essential (primary) hypertension, Hx: DVT, Chronic anticoagulation BP: 101 / 62 HR: 61 Rhythm: Sinus Technical Quality: IMPRESSIONS Left ventricular ejection fraction is estimated at 60 %. There is grade 2 diastolic dysfunction. Tricuspid regurgitation velocities suggest a RVSP of 38 mmHg plus the right atrial presure. Trace pulmonic insufficiency MEASUREMENTS (Male / Female) Normal Values 2D ECHO LV Diastolic Diameter PLAX 4.3 cm 4.2 - 5.9 / 3.9 - 5.3 cm LV Systolic Diameter PLAX 2.4 cm LV Fractional Shortening PLAX 44.2 % IVS Diastolic Thickness 0.9 cm 0.6 - 1.0 / 0.6 - 0.9 cm LVPW Diastolic Thickness 1.1 cm 0.6 - 1.0 / 0.6 - 0.9 cm RV Internal Dim ED PLAX 3.7 cm Aortic Root Diameter 3.1 cm LA Systolic Diameter LX 4.5 cm 3.0 - 4.0 / 2.7 - 3.8 cm DOPPLER TR Peak Velocity 309.0 cm/s TR Peak Gradient 38.2 mmHg FINDINGS Left Ventricle Normal left ventricular cavity size. Normal left ventricular wall thickness. Left ventricular ejection fraction is estimated at 60 %. There is grade 2 diastolic dysfunction. Right Ventricle Mildly increased right ventricular size. Right Atrium The right atrium is mildly enlarged. Left Atrium The left atrium is mildly enlarged. Mitral Valve Morphologically normal mitral valve. Trace mitral valve regurgitation. Aortic Valve Trace aortic valve regurgitation. Tricuspid Valve Morphologically normal tricuspid valve. Trace to mild tricuspid valve regurgitation. Tricuspid regurgitation velocities suggest a RVSP of 38 mmHg plus the right atrial presure. The hepatic veins were not visualized to estimated RA pressure. Pulmonic Valve Morphologically normal pulmonic valve. Trace pulmonary valve regurgitation. Pericardium Normal pericardium without effusion. Aorta Normal ascending aorta dimension. Kaykay Urias (Electronically Signed) Final Date: 30 November 2016 18:53
[2016-11-30] MEDS: ACETAMINOPHEN 325 MG TABLET PO PRN (21:28)
[2016-11-30] MEDS: GABAPENTIN 300 MG CAPSULE PO SCH (21:30)
[2016-11-30] MEDS: ROSUVASTATIN 20 MG TABLET PO SCH (21:30)
[2016-12-01] MEDS: ALBUTEROL/IPRATROPIUM 3 ML NEB RESP TX SCH ×4 (00:16→18:54)
[2016-12-01 05:32] LABS: Basophils % 0.7 % (0.0-0.8); Eosinophils # 0.1 10*3/uL (0.0-0.87); Eosinophils % 3.2 % (0.00-10.9); Hematocrit 34.1 VOL% (35.7-47.0); Hemoglobin 11.3 GM/DL (12.0-16.0); Immature Granulocytes % 0.2 %; Immature Granulocytes Absolute 0.01 #; Lymphocytes # 1.3 10*3/uL (1.4-4.0); Lymphocytes % 32.1 % (21.3-54.2); Mean Corpuscular HGB Conc 33.1 GM/DL (32-36); Mean Corpuscular Hemoglobin 29 PG (27-34); Mean Corpuscular Volume 88.8 FL (87-102); Mean Platelet Volume 12.8 FL (9.6-12.0); Monocytes # 0.5 10*3/uL (0.11-0.8); Monocytes % 13.2 % (1.7-12.7); Neutrophils # 2.1 10*3/uL (1.4-7.4); Neutrophils % 50.6 % (38.7-73.9); Platelet Count 103 T/CUMM (130-400); Red Blood Count 3.84 MC/CUMM (3.8-5.5); Red Cell Distribution Width 14.3 % (9.3-17.3); White Blood Count 4.1 T/CUMM (4-12)
[2016-12-01 05:54] LABS: INR 1.6; PT Patient Result 17.8 SECS
[2016-12-01 06:02] LABS: Magnesium 1.3 MG/DL (1.8-2.4); Osmolality,Calculated 289.7 MOS/KG (273-304); Potassium 3.9 MMOL/L (3.5-5.1)
--- NOTE | 2016-12-01 08:03 | Hematology Consult ---
Assessment and Plan (1) Pancytopenia Status: Acute Assessment and plan: Patient's red cells and white cells are fairly normal and I do not think these are of any concern. A hemoglobin greater than 11 we definitely not be causing her dyspnea so I do not think there is a hematology because of her symptoms. Her platelet count around 100 does warrant at least further workup to rule out any underlying causes. The ultrasound yesterday was negative for splenomegaly. I will order a full lab workup including protein electro paresis, nutritional deficiencies, liver panel, and hemolysis labs. We will see what her albumin shows on her liver panel. If it is once again around 2, this may warrant further workup. 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 Cardiology has done coronary angiography that showed no significant coronary disease. Pulmonary is now evaluating her. Hematology has been consulted to evaluate her mild pancytopenia. Ultrasound done yesterday showed no evidence of splenomegaly. She reports no history of known anemia or thrombocytopenia. Her blood count levels here show white count greater than for hemoglobin greater than 11 and a platelet count around 100,000. Looking back at her lab work in 2007 in the hospital records show that her platelet count then was 250,000 but her white count and red cells were about the same. It is worth noting that her labs from 2008 showed an albumin level close to 2. There is no recent liver panel done at the outside hospital or here at [facility] [place]. She is still having some dyspnea with exertion. She denies any bright red blood per rectum. She denies any easy bruising or bleeding normal. She denies any alcohol consumption. She denies any history of liver disease. CC: Shasta Edwards, - Home Medications and Allergies Home Medications: Home Medications Medication Instructions Recorded Confirmed Type Cholecalciferol (Vitamin D3) 50,000 unit PO Q7D 11/29/16 11/29/16 History [Vitamin D3] Citalopram Hydrobromide 20 mg PO DAILY 11/29/16 11/29/16 History [Citalopram HBr] Gabapentin [Gabapentin] 300 mg PO BEDTIME 11/29/16 11/29/16 History Insulin Aspart Prot/Insuln Asp 13 units SUBCUT QPM 11/29/16 11/29/16 History [NovoLOG Mix 70-30 FlexPen] Insulin Aspart Prot/Insuln Asp 17 units SUBCUT QAM 11/29/16 11/29/16 History [NovoLOG Mix 70-30 FlexPen] Metformin HCl [Metformin HCl] 1,000 mg PO BID 11/29/16 11/29/16 History Metoprolol Succinate 100 mg PO BID 11/29/16 11/29/16 History Ranitidine Tab [Zantac Tab] 150 mg PO DAILY 11/29/16 11/29/16 History Rosuvastatin Calcium [Rosuvastatin 20 mg PO BEDTIME 11/29/16 11/29/16 History Calcium] Solifenacin Succinate [Vesicare] 10 mg PO DAILY 11/29/16 11/29/16 History Valsartan/Hydrochlorothiazide 1 each PO DAILY 11/29/16 11/29/16 History [Valsartan-Hctz 320-12.5 mg Tab] Warfarin [Coumadin] 2 mg PO SUTUTHSA 11/29/16 11/29/16 History Warfarin [Coumadin] 3 mg PO MOWEFR 11/29/16 11/29/16 History glyBURIDE [Glyburide] 5 mg PO 1000,1700 11/29/16 11/29/16 History Allergies/Adverse Reactions: Allergies Allergy/AdvReac Type Severity Reaction Status Date / Time diphtheria,pertussis Allergy Unknown/Unable Verified 11/29/16 12:29 (acellular),te to obtain [From Boostrix Tdap] levofloxacin [From Levaquin] Allergy Unknown/Unable Verified 11/29/16 12:29 to obtain Medical,Surgical,& Family Hx - Medical History Cardio: History of: Hypertension Endocrine: History of: Diabetes Mellitus (IDDM), Diabetes Mellitus (NIDDM), Dyslipidemia Respiratory: History of: Pulmonary Embolism (With recurrent DVTs) Genitourinary: No history of: Bladder Problem Gastrointestinal: No history of: Bowel Obstruction Other: History of: Miscellaneous Medical Problems (dvt) - Surgical History Abdominal Surgeries: Surgical HX of: Cholecystectomy Reproductive Surgeries: Surgical HX of;: Hysterectomy - Family History Family History: Reports;: Family Heart Disease - Social History Smoking Status: Never smoker Frequency of Alcohol Use: None Type of Drug Use: None 12 point system: reviewed and no additional remarkable complaints except as stated - Constitutional Constitutional: Present: fatigue, weakness. Absent: chills, fever(s), weight loss - Cardiovascular Cardiovascular ROS IM: Absent: chest pain, edema, orthopnea - Respiratory Respiratory: Present: dyspnea. Absent: cough, wheezing Exam - Constitutional Vitals: Period Temp Pulse Resp BP Sys/Manning Pulse Ox Last 24 Hr 96.6 F-99.1 F 58-71 16-20 106-140/51-68 95-99 General appearance: normal weight, no acute distress - Head Head Exam: Present: normocephalic, atraumatic - Eye Eye Exam: Present: EOMI Pupils: Present: PERRL - ENT ENT exam: Present: normal exam, normal oropharynx - Neck Neck exam: Absent: lymphadenopathy, thyromegaly - Respiratory Respiratory exam: Present: CTAB. Absent: decreased breath sounds, wheezes - Cardiovascular Cardiovascular exam: Present: RRR. Absent: irregular rhythm, JVD, systolic murmur - GI/Abdominal GI/Abdominal exam: Present: soft. Absent: ascites, distended, firm, mass - Neurological Exam Neurological exam: Present: alert, oriented X3 - Psychiatric Psychiatric exam: Present: normal affect, normal mood - Skin Skin exam: Present: warm, dry Results - Labs CBC & BMP: 12/01/16 05:06 12/01/16 05:06 Lab Results: I have reviewed the past 24 hour labs
--- NOTE | 2016-12-01 08:20 | Pulmonology Progress Note ---
Pulmonary - PN: Subj Interval history: This 66-year-old white female came in with chest tightness and shortness of breath. She had a negative cardiac catheterization. I was asked to evaluate her for pulmonary causes. She is a non-smoker. She has not had chronic problems with her breathing. She has a mild anemia. No history of asthma. We obtained pulmonary function studies yesterday and they are normal. Her room air oxygen saturation now is in the upper 90s. Apparently she had one reading of 88% in the emergency room on admission. All other readings that I see her in the mid 90s are better. I will obtain ABGs on room air to confirm this. There does not appear to be any significant pulmonary cause for her dyspnea. Her echocardiogram did not show any signs of pulmonary hypertension. She does have a remote history of deep vein thrombosis and one episode of pulmonary embolism in the . She has been on lifelong anticoagulant since then. There is no sign of any ongoing DVT or pulmonary emboli. CT PE protocol was negative as well. Exam (Progress Note) - Constitutional Vitals: Period Temp Pulse Resp BP Sys/Manning Pulse Ox Last 24 Hr 96.6 F-99.1 F 58-71 16-20 106-140/51-68 95-99 Exam: Patient's alert oriented vital signs normal. Pupils react to light. Throat is clear. Neck is supple no bruits. Chest is clear equal breath sounds. Heart normal rate rhythm no murmurs. Abdomen soft nontender no masses. Extremities no clubbing cyanosis edema. Calves nontender. Results - Labs CBC & BMP: 12/01/16 05:06 12/01/16 05:06 Lab Results: I have reviewed the past 24 hour labs Assessment and Plan (1) Pancytopenia Status: Acute Assessment and plan: Her hematocrit is 34, platelet count 98,000, white blood count 3300. Looking back at her labs from 2007 they were roughly the same then. Nevertheless with her dyspnea I think we should get this evaluated further. Will ultrasound spleen as well. 12/01/2016 Dr. Ariza is evaluating from a hematologic standpoint. Spleen not enlarged on ultrasound Current Visit: Yes (2) Hoarseness Status: Acute Assessment and plan: She has had problems with intermittent hoarseness for years. Probably allergic rhinitis. Will get sinus x-rays. 12/01/2016 has some mild chronic sinus disease indicated on plain sinus films. May be worthwhile to have ENT to see. 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 Also aggravated by exercise. No clear-cut indication for the cause of it at present. She has had pulmonary emboli in the past. Need to be sure she does not have pulmonary hypertension related to that or something else. Also will obtain PFTs. Physical deconditioning may be playing a part. Postnasal drip with congestion from that could be a part. Coronary disease has been ruled out by catheterization. 12/01/2016 normal PFTs normal O2 saturation. Normal right ventricular pressure noted on echo. Negative CT including PE protocol. No pulmonary cause found for dyspnea. There may be some physical deconditioning. Anemia is mild and should not cause dyspnea on its own. Current Visit: Yes Qualifiers: Dyspnea type: dyspnea on exertion Qualified Code(s): R06.09 - Other forms of dyspnea (4) Chronic anticoagulation Status: Chronic Assessment and plan: She has been on Coumadin for 25+ years. She is compliant with her PT/INR checked. Current Visit: Yes (5) History of DVT (deep vein thrombosis) Status: Chronic Assessment and plan: Legs are not swollen or painful at present. Will obtain ultrasound to be sure there is no persistent DVT. 12/01/2016 no signs of any active DVT or pulmonary emboli. Agree with lifelong anticoagulation. Current Visit: Yes
[2016-12-01 08:26] LABS: % Iron Saturation 13.1 % (18-50); Albumin 2.9 G/DL (3.4-5.0); Bilirubin,Direct 0.14 MG/DL (0.0-0.20); Bilirubin,Indirect 0.4 MG/DL (0.0-1.0); Bilirubin,Total 0.5 MG/DL (0.2-1.0); Ferritin 45.9 ng/ml (8-252); Total Protein 5.6 G/DL (6.4-8.3)
[2016-12-01 09:31] LABS: ABG Base Excess 0.7 MMOL/L (-2.5-2.5); ABG HCO3 22.9 MMOL/L (20-26); ABG PCO2 29.6 MM HG (35-48); ABG PH 7.507 (7.35-7.45); ABG PO2 66.9 MM HG (80-95); ABG TCO2 23.8 MMOL/L (23-27)
[2016-12-01] MEDS: INSULIN ASPART PROTAMINE/ASPART 70/30 100 UNIT/ML SUBCUT SCH ×3 (10:02→18:16)
[2016-12-01] MEDS: INSULIN REGULAR 100 UNIT/ML SUBCUT SCH ×4 (10:02→21:57)
[2016-12-01] MEDS: CITALOPRAM 20 MG TABLET PO SCH (10:03)
[2016-12-01] MEDS: FAMOTIDINE 20 MG TABLET PO SCH (10:03)
[2016-12-01] MEDS: METOPROLOL SUCCINATE XL 100 MG TABLET PO SCH ×2 (10:03→21:57)
[2016-12-01] MEDS: SOLIFENACIN 5 MG TABLET PO SCH (10:03)
[2016-12-01] MEDS: glyBURIDE 5 MG TABLET PO SCH ×2 (10:03→17:29)
[2016-12-01] MEDS: VALSARTAN 160 MG TABLET PO SCH (10:04)
[2016-12-01] MEDS: hydroCHLOROthiazide 12.5 MG CAPSULE PO SCH (10:04)
[2016-12-01] MEDS: ENOXAPARIN 100 MG/ML SYRINGE SUBCUT SCH (13:32)
--- NOTE | 2016-12-01 13:50 | Cardiology Progress Note ---
Imer Keen Lesley, NAILA, am scribing for, and in the presence of, [email or web address] 13:49. Assessment and Plan - Time spent with patient Time spent with patient: Greater than 30 minutes (record review, assessment and documentation) (1) Dyspnea Status: Acute Current Visit: Yes Qualifiers: Dyspnea type: dyspnea on exertion Qualified Code(s): R06.09 - Other forms of dyspnea (2) Chronic anticoagulation Status: Chronic Assessment and plan: Warfarin restarted, monitor INR daily. 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 White is a 66-year-old WF, who presented to the [facility] ER with complaints of progressive dyspnea over the last 3 weeks. The patient also describes discomfort in the left scapula area and radiated into the left arm while in the shower. Patient described the discomfort as numbness and noted that this happened once yesterday prior to presenting to ER. She presented to the emergency room at [facility] because she was unable to speak in complete sentences due to dyspnea. She was transferred to our facility for care. Patient has cardiac risk factors including hypertension, dyslipidemia, chronic renal insufficiency, diabetes, positive family history, obesity, advanced age, recurrent DVTs and PE, and chronic anticoagulation. The decision was made to perform a left heart cath on the patient due to her presentation and cardiac risk factors. Left heart revealed no significant obstructive coronary artery disease. Right dominant coronary arteries with an ejection fraction of 70%. The patient has been housed on telemetry post-cath. Pulmonary medicine was consulted. Chest x- ray is unremarkable, minor scarring noted in the lung bases. EKG shows sinus rhythm. Labs reviewed today: WBCs 3.3, H&H 11 and 34, electrolytes WNL, creatinine 1.1, triglycerides 334, cholesterol 97, LDL 37, HDL 26. Troponin unremarkable. Blood pressure is well controlled, sinus bradycardia noted on telemetry. DECEMBER 01, 2016 UPDATE: The patient denies further chest pain or left scapular pain. She reports sleeping through the night without supplemental oxygen, and is not using oxygen for ambulation to restroom. Her dyspnea seems mildly improved. Warfarin restarted and INR 1.6 today. Echocardiogram reveals LVEF 60% , grad 2 diastolic dysfunction, TR velocities suggest RVSP of 38mmHg plus the RA pressure. Trace pulmonic insufficiency. US of spleen ruled out splenomegaly, evidence of previous cholecystectomy. Venous dopplers negative. Pulmonary and Hematology notes reviewed. Hematology is working up mild pancytopenia. I long discussion with Ms. White and her family. We talked about the findings thus far also discussed specifically the abnormal liver associated enzymes. This transaminase elevation is very little but is along with the very few things that have any abnormality thus far. Her INR is abnormal because of therapeutic warfarin therapy. We talked about risk factors for infectious hepatitis she reports an episode in the early where she was exposed on mucous membranes to body fluids from an endoscopy she had a complete evaluation at the index of unit and then repeat serologies for hepatitis and HIV 6 months later which were all negative. 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 I discussed with Dr. Ortiz and he will see her. With this minimal transaminase elevation and mild pancytopenia I will check had infectious hepatitis serologies and HIV. The assistance of all consultants is greatly appreciated. Her blood gases are noted. Exam (Progress Note) - Constitutional Vitals: Period Temp Pulse Resp BP Sys/Manning Pulse Ox Last 24 Hr 96.6 F-99.1 F 58-71 16-20 97-140/51-68 95-99 Exam: General: Appears well with no apparent distress. Pleasant and cooperative. Appears comfortable. HEENT: PERRL, normocephalic, atraumatic. Mucous membranes moist. No jaundice noted. Conjunctiva moist and clear, sclerae anicteric. Neck: No JVD/HJR, no thyromegaly or lymphadenopathy noted. No carotid bruit appreciated. Cardiac: Regular rate and rhythm. No murmur rub or gallop. PMI is nondisplaced. Lungs: Clear to auscultation without accessory muscle use to assist the respiratory pattern. Oxygen not in use, mild BEE from restroom to bed. Abdomen: Soft, bowel sounds normoactive. Nontender and nondistended. No abdominal bruit or thrill noted. No masses noted. Musculoskeletal: No fluid collection. Full range of motion is noted to all extremities in bed. Extremities: No clubbing, cyanosis noted. Trace edema noted to BLE. Upper extremity pulses 2+. Lower extremity pulses 2+. Capillary refill less than 3 seconds. Right groin soft, no bleeding, no bruit auscultated. Skin: No unusual lesions or rashes. No skin breakdown appreciated. Neuro: Awake, alert and oriented 3. Moves all extremities well without hemiparesis or paralysis. No essential tremor is appreciated. She was tachypneic on her lung exam today but has clear lung parenchyma her cardiovascular exam in the above exam is as documented by Ms. Willams. Result/EKG - Labs CBC & BMP: 12/01/16 05:06 12/01/16 05:06 Lab Results: I have reviewed the past 24 hour labs Labs: Laboratory Results - last 24 hr 11/30/16 11/30/16 11/30/16 07:37 11:53 16:42 WBC RBC Hgb Hct MCV MCH MCHC RDW Plt Count MPV Neut % (Auto) Lymph % (Auto) [place] % (Auto) Eos % (Auto) Baso % (Auto) Neut # (Auto) Lymph # (Auto) [place] # (Auto) Eos # (Auto) Baso # (Auto) Immature Gran % Nucleated RBC % Immature Gran # Nucleated RBCs # Immature Plt Fraction Haptoglobin INR PT Patient/Control Mix Fibrinogen Sodium Potassium Chloride Carbon Dioxide Anion Gap BUN Creatinine GFR Calculation BUN/Creatinine Ratio Glucose POC Glucose 273 H 215 H Calculated Osmolality Calcium Magnesium Iron TIBC % Saturation Ferritin Total Bilirubin Direct Bilirubin Indirect Bilirubin AST ALT Alkaline Phosphatase Total Protein Albumin Triglycerides 334 H Cholesterol 97 LDL Cholesterol 37.0 VLDL Cholesterol 66.8 HDL Cholesterol 26 L Heart Disease Risk Ratio 3.73 11/30/16 12/01/16 12/01/16 20:38 05:06 05:06 WBC 4.1 RBC 3.84 Hgb 11.3 L Hct 34.1 L MCV 88.8 MCH 29 MCHC 33.1 RDW 14.3 Plt Count 103 L MPV 12.8 H Neut % (Auto) 50.6 Lymph % (Auto) 32.1 [place] % (Auto) 13.2 H Eos % (Auto) 3.2 Baso % (Auto) 0.7 Neut # (Auto) 2.1 Lymph # (Auto) 1.3 L Steuben # (Auto) 0.5 Eos # (Auto) 0.1 Baso # (Auto) 0.0 Immature Gran % 0.2 Nucleated RBC % 0.0 Immature Gran # 0.01 Nucleated RBCs # 0.00 Immature Plt Fraction 0.0 Haptoglobin INR 1.6 PT Patient/Control Mix 17.8 Fibrinogen Sodium Potassium Chloride Carbon Dioxide Anion Gap BUN Creatinine GFR Calculation BUN/Creatinine Ratio Glucose POC Glucose 264 H Calculated Osmolality Calcium Magnesium Iron TIBC % Saturation Ferritin Total Bilirubin Direct Bilirubin Indirect Bilirubin AST ALT Alkaline Phosphatase Total Protein Albumin Triglycerides Cholesterol LDL Cholesterol VLDL Cholesterol HDL Cholesterol Heart Disease Risk Ratio 12/01/16 12/01/16 12/01/16 05:06 05:06 05:06 WBC RBC Hgb Hct MCV MCH MCHC RDW Plt Count MPV Neut % (Auto) Lymph % (Auto) [place] % (Auto) Eos % (Auto) Baso % (Auto) Neut # (Auto) Lymph # (Auto) [place] # (Auto) Eos # (Auto) Baso # (Auto) Immature Gran % Nucleated RBC % Immature Gran # Nucleated RBCs # Immature Plt Fraction Haptoglobin 149.0 INR PT Patient/Control Mix Fibrinogen 299 Sodium 145 Potassium 3.9 Chloride 107 Carbon Dioxide 29 Anion Gap 12.9 BUN 15 Creatinine 1.10 H GFR Calculation 64 BUN/Creatinine Ratio 13.00 Glucose 114 H POC Glucose Calculated Osmolality 289.7 Calcium 8.0 L Magnesium 1.3 L Iron 37 L TIBC 282 % Saturation 13.1 L Ferritin 45.9 Total Bilirubin 0.50 Direct Bilirubin 0.140 Indirect Bilirubin 0.4 AST 53 H ALT 65 H Alkaline Phosphatase 53 Total Protein 5.6 L Albumin 2.9 L Triglycerides Cholesterol LDL Cholesterol VLDL Cholesterol HDL Cholesterol Heart Disease Risk Ratio 12/01/16 07:50 WBC RBC Hgb Hct MCV MCH MCHC RDW Plt Count MPV Neut % (Auto) Lymph % (Auto) Ste[place] % (Auto) Eos % (Auto) Baso % (Auto) Neut # (Auto) Lymph # (Auto) [place] # (Auto) Eos # (Auto) Baso # (Auto) Immature Gran % Nucleated RBC % Immature Gran # Nucleated RBCs # Immature Plt Fraction Haptoglobin INR PT Patient/Control Mix Fibrinogen Sodium Potassium Chloride Carbon Dioxide Anion Gap BUN Creatinine GFR Calculation BUN/Creatinine Ratio Glucose POC Glucose 193 H Calculated Osmolality Calcium Magnesium Iron TIBC % Saturation Ferritin Total Bilirubin Direct Bilirubin Indirect Bilirubin AST ALT Alkaline Phosphatase Total Protein Albumin Triglycerides Cholesterol LDL Cholesterol VLDL Cholesterol HDL Cholesterol Heart Disease Risk Ratio - EKG EKG results: interpreted by me, sinus rhythm Bridgett Keen Shea, , personally performed the services described in this documentation, ascribed by Cheryl Willams NP in my presence, and it is both accurate and complete [id number] .
[2016-12-01 14:31] LABS: Immuno Free Light Chain Kappa 5.28 MG/DL (0.33-1.94); Immuno Free Light Chain Lambda 3.54 MG/DL (0.57-2.63); Immuno Free Light Chain Ratio 1.49 MG/DL (0.26-1.65)
--- NOTE | 2016-12-01 14:40 | Gastrointestinal Consult Note ---
<Bhakti Delacruz Rigoberto - Last Filed: 12/01/16 14:32> Assessment and Plan (1) Elevated LFTs Status: Acute Assessment and plan: 12/01-admitted with shortness of breath with continued workup regarding this, with findings of mildly elevated transaminases with no prior history of this or liver disease. Abdominal ultrasound without acute findings. Pancytopenia workup pending with Dr. Ariza. Father plan an addendum to followed by Dr. Ortiz. Current Visit: Yes (2) Chronic diarrhea Status: Acute Assessment and plan: 12/01-several year history of several loose diarrhea stools daily, without melena or hematochezia. Workup at [place] 2 years ago with colonoscopy with no negative findings. Occasional nocturnal defecation with incontinence. Obtain endoscopy records from [place]. Plan an addendum to followed by Dr. Ortiz. Current Visit: Yes History of Present Illness Chief complaint: Elevated LFTs History of present illness: Ms. White is a 66 year old female who was admitted to the hospital on with complaints of shortness of breath times several months. Patient is routinely followed by Nakia Cali, nurse practitioner in [place]. 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 Patient states that she has had shortness of breath over the last several months that has progressively worsened. She states that initially the shortness of breath was not interfering with her daily activities however the last few weeks she has been unable to carry on a conversation without becoming short of breath. She has been checking her oxygen saturations which have been normal during this time. On Monday, patient was at work and was unable to speak without becoming short of breath and was sent to the emergency room in [place]. She was then transferred to our facility for further workup. Patient has been followed by cardiology since admission and underwent a heart catheterization on yesterday with no findings of obstructive coronary artery disease. She was also found to have some pancytopenia and has been evaluated by Dr. Taylor as well with further workup still pending. Patient was also found on admission to have elevated transaminases with AST 53 and ALT 65. Albumin noted at 2.9 with INR 1.6. Patient states that she has no prior history of elevated LFTs in the past and does receive routine medical follow-ups however no recent liver panel noted at this time. She has a history of recurring DVTs as well as PE and is on Coumadin therapy for this. She does not smoke or drink alcohol. She states that she can recall 1 episode greater than 20 years ago in which she was exposed to body fluid during the cleaning of the scope on a patient that was positive for HIV as well as hepatitis. Her follow-up labs remain negative after this exposure. 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 Patient does take cholesterol medication and has done so for several years. Patient's daughter also brought forth that patient has chronic diarrhea stools, at several a day, without abdominal pain or cramping. She has occasional nocturnal defecation as well as occasional incontinence. She has had a workup for this in the past couple years by Dr. Zoila escobar and states that no findings were noted during the colonoscopy. She denies any melena or hematochezia. States that approximately 6 months ago she did lose approximately 30 pounds however her weight has leveled out at this point. She cannot recall specifics of why she had the weight loss. She had a cholecystectomy many years ago but does not recall having gallstones at that time. Abdominal ultrasound shows no splenomegaly, liver unremarkable, and postsurgical common bile duct at 7 mm. Home Medications Medication Instructions Recorded Confirmed Type Cholecalciferol (Vitamin D3) 50,000 unit PO Q7D 11/29/16 11/29/16 History [Vitamin D3] Citalopram Hydrobromide 20 mg PO DAILY 11/29/16 11/29/16 History [Citalopram HBr] Gabapentin [Gabapentin] 300 mg PO BEDTIME 11/29/16 11/29/16 History Insulin Aspart Prot/Insuln Asp 13 units SUBCUT QPM 11/29/16 11/29/16 History [NovoLOG Mix 70-30 FlexPen] Insulin Aspart Prot/Insuln Asp 17 units SUBCUT QAM 11/29/16 11/29/16 History [NovoLOG Mix 70-30 FlexPen] Metformin HCl [Metformin HCl] 1,000 mg PO BID 11/29/16 11/29/16 History Metoprolol Succinate 100 mg PO BID 11/29/16 11/29/16 History Ranitidine Tab [Zantac Tab] 150 mg PO DAILY 11/29/16 11/29/16 History Rosuvastatin Calcium [Rosuvastatin 20 mg PO BEDTIME 11/29/16 11/29/16 History Calcium] Solifenacin Succinate [Vesicare] 10 mg PO DAILY 11/29/16 11/29/16 History Valsartan/Hydrochlorothiazide 1 each PO DAILY 11/29/16 11/29/16 History [Valsartan-Hctz 320-12.5 mg Tab] Warfarin [Coumadin] 2 mg PO SUTUTHSA 11/29/16 11/29/16 History Warfarin [Coumadin] 3 mg PO MOWEFR 11/29/16 11/29/16 History glyBURIDE [Glyburide] 5 mg PO 1000,1700 11/29/16 11/29/16 History Allergies Allergy/AdvReac Type Severity Reaction Status Date / Time diphtheria,pertussis Allergy Unknown/Unable Verified 11/29/16 12:29 (acellular),te to obtain [From Boostrix Tdap] levofloxacin [From Levaquin] Allergy Unknown/Unable Verified 11/29/16 12:29 to obtain Medical,Surgical,& Family Hx - Medical History Cardio: History of: Hypertension Endocrine: History of: Diabetes Mellitus (IDDM), Diabetes Mellitus (NIDDM), Dyslipidemia Respiratory: History of: Pulmonary Embolism (With recurrent DVTs) Genitourinary: No history of: Bladder Problem Gastrointestinal: No history of: Bowel Obstruction Other: History of: Miscellaneous Medical Problems (dvt) - Surgical History Abdominal Surgeries: Surgical HX of: Cholecystectomy Reproductive Surgeries: Surgical HX of;: Hysterectomy - Family History Family History: Reports;: Family Heart Disease - Social History Smoking Status: Never smoker Frequency of Alcohol Use: None Type of Drug Use: None 12 point system: reviewed and no additional remarkable complaints except as stated - Constitutional Constitutional: Present: as per HPI - EENT Eyes: Present: as per HPI Ears: Present: as per HPI Nose, mouth and throat: Present: as per HPI - Cardiovascular Cardiovascular: Present: as per HPI, dyspnea - Respiratory Respiratory: Present: as per HPI, dyspnea - Gastrointestinal Gastrointestinal: Present: as per HPI, heartburn - Genitourinary Genitourinary: Present: as per HPI - Musculoskeletal Musculoskeletal: Present: as per HPI - Neurological Neurological: Present: as per HPI - Psychiatric Psychiatric: Present: as per HPI - Endocrine Endocrine: Present: as per HPI - Hematologic/Lymphatic Hematologic/Lymphatic: Present: as per HPI Exam - Constitutional Vitals: Period Temp Pulse Resp BP Sys/Manning Pulse Ox Last 24 Hr 96.6 F-99.1 F 58-71 16-20 97-140/51-68 95-100 General appearance: normal weight, no acute distress - Head Head exam: Present: normal inspection, normocephalic - Eye Eye exam: Present: other (Lids and conjunctive are unremarkable). Absent: scleral icterus - ENT ENT exam: Present: normal exam, normal oropharynx - Neck Neck exam: Present: normal inspection - Respiratory Respiratory exam: Present: clear to auscultation bilaterally. Absent: rales, rhonchi, wheezes - Cardiovascular Cardiovascular exam: Present: regular rate and rhythm. Absent: diastolic murmur , JVD, systolic murmur - GI/Abdominal GI/Abdominal exam: Present: normal bowel sounds, soft. Absent: ascites, distended, mass, organomegaly, tenderness - Extremities Exam Extremities exam: Present: normal inspection, full ROM - Back Exam Back exam: Present: normal inspection - Neurological Exam Neurological exam: Present: alert, oriented X3 - Psychiatric Psychiatric exam: Present: normal affect, normal mood - Skin Skin exam: Present: normal color, warm, dry Results - Labs CBC & BMP: 12/01/16 05:06 12/01/16 05:06 Lab Results: I have reviewed the past 24 hour labs - Diagnostic Findings Procedure: Ultrasound: report reviewed by ok <Mamadou Ortiz - Last Filed: 12/01/16 18:06> History of Present Illness Chief complaint: 3030 History of present illness: Ms. White is a 66 year old female Exam - Constitutional Vitals: Period Temp Pulse Resp BP Sys/Manning Pulse Ox Last 24 Hr 96.6 F-99.1 F 58-71 16-20 97-140/51-91 95-100 Results - Labs CBC & BMP: 12/01/16 05:06 12/01/16 05:06
[2016-12-01] MEDS ORDERED: WARFARIN 5 MG TABLET PO SCH (18:00)
[2016-12-01 19:41] LABS: AFP Tumor 1.3 NG/ML (0-8)
[2016-12-01] MEDS: MORPHINE 2 MG/1 ML SYRINGE IV PRN ×2 (20:56→22:25)
[2016-12-01] MEDS: MAGNESIUM CHLORIDE 64 MG TABLET PO SCH (21:57)
[2016-12-01] MEDS: GABAPENTIN 300 MG CAPSULE PO SCH (21:58)
[2016-12-02] MEDS: ALBUTEROL/IPRATROPIUM 3 ML NEB RESP TX SCH ×3 (00:06→13:48)
[2016-12-02] MEDS: ENOXAPARIN 100 MG/ML SYRINGE SUBCUT SCH (02:30)
[2016-12-02 05:07] LABS: Basophils % 0.5 % (0.0-0.8); Eosinophils # 0.1 10*3/uL (0.0-0.87); Hematocrit 33.3 VOL% (35.7-47.0); Hemoglobin 11.1 GM/DL (12.0-16.0); Immature Granulocytes % 0.5 %; Immature Granulocytes Absolute 0.02 #; Lymphocytes # 1.6 10*3/uL (1.4-4.0); Lymphocytes % 36.3 % (21.3-54.2); Mean Corpuscular HGB Conc 33.3 GM/DL (32-36); Mean Corpuscular Hemoglobin 30 PG (27-34); Mean Corpuscular Volume 89.3 FL (87-102); Mean Platelet Volume 13.1 FL (9.6-12.0); Monocytes # 0.6 10*3/uL (0.11-0.8); Monocytes % 14.5 % (1.7-12.7); Neutrophils # 1.9 10*3/uL (1.4-7.4); Neutrophils % 45.2 % (38.7-73.9); Platelet Count 104 T/CUMM (130-400); Red Blood Count 3.73 MC/CUMM (3.8-5.5); Red Cell Distribution Width 14.3 % (9.3-17.3); White Blood Count 4.3 T/CUMM (4-12)
[2016-12-02 05:25] LABS: INR 2.1
[2016-12-02 05:31] LABS: PT Patient Result 23.4 SECS
[2016-12-02 05:36] LABS: Calcium 7.7 MG/DL (8.5-10.1); Magnesium 1.3 MG/DL (1.8-2.4); Potassium 3.5 MMOL/L (3.5-5.1)
[2016-12-02 07:02] LABS: Albumin 2.9 G/DL (3.4-5.0); Bilirubin,Direct 0.14 MG/DL (0.0-0.20); Bilirubin,Indirect 0.3 MG/DL (0.0-1.0); Bilirubin,Total 0.4 MG/DL (0.2-1.0); Total Protein 5.7 G/DL (6.4-8.3)
--- NOTE | 2016-12-02 07:54 | Pulmonology Progress Note ---
Pulmonary - PN: Subj Interval history: This 66-year-old white female came in with chest tightness and shortness of breath. She had a negative cardiac catheterization. I was asked to evaluate her for pulmonary causes. She is a non-smoker. She has not had chronic problems with her breathing. She has a mild anemia. No history of asthma. We obtained pulmonary function studies yesterday and they are normal. Her room air oxygen saturation now is in the upper 90s. Apparently she had one reading of 88% in the emergency room on admission. All other readings that I see her in the mid 90s are better. I will obtain ABGs on room air to confirm this. There does not appear to be any significant pulmonary cause for her dyspnea. Her echocardiogram did not show any signs of pulmonary hypertension. She does have a remote history of deep vein thrombosis and one episode of pulmonary embolism in the . She has been on lifelong anticoagulant since then. There is no sign of any ongoing DVT or pulmonary emboli. CT PE protocol was negative as well. 12/02/2016 patient has no measurable lung disease. CT scan and PFTs were normal. The diffusion was borderline. However her arterial PO2 on room air is 66 with a PCO2 of about 30. There could be very early interstitial lung disease that is not enough to measure at this point. This could also be the after effects of an acute respiratory infection that is resolving. I have recommended exercise O2 saturation to see if she needs oxygen at home. There can be shunting in the lungs associated with other diseases such as chronic liver disease. GI is evaluating for that. Also she does have a history of remote pulmonary emboli. Certainly no evidence of any residual emboli and she does have borderline pulmonary hypertension. Exam (Progress Note) - Constitutional Vitals: Period Temp Pulse Resp BP Sys/Manning Pulse Ox Last 24 Hr 97.2 F-99.1 F 63-80 18-20 97-135/55-91 93-100 Exam: Patient's alert oriented vital signs normal. Pupils react to light. Throat is clear. Neck is supple no bruits. Chest is clear equal breath sounds. Heart normal rate rhythm no murmurs. Abdomen soft nontender no masses. Extremities no clubbing cyanosis edema. Calves nontender. Results - Labs CBC & BMP: 12/02/16 03:42 12/02/16 03:42 Lab Results: I have reviewed the past 24 hour labs Assessment and Plan (1) Pancytopenia Status: Acute Assessment and plan: Her hematocrit is 34, platelet count 98,000, white blood count 3300. Looking back at her labs from 2007 they were roughly the same then. Nevertheless with her dyspnea I think we should get this evaluated further. Will ultrasound spleen as well. 12/01/2016 Dr. Ariza is evaluating from a hematologic standpoint. Spleen not enlarged on ultrasound 12/02/2016 being evaluated by hematology. Current Visit: Yes (2) Hoarseness Status: Acute Assessment and plan: She has had problems with intermittent hoarseness for years. Probably allergic rhinitis. Will get sinus x-rays. 12/01/2016 has some mild chronic sinus disease indicated on plain sinus films. May be worthwhile to have ENT to see. 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 Also aggravated by exercise. No clear-cut indication for the cause of it at present. She has had pulmonary emboli in the past. Need to be sure she does not have pulmonary hypertension related to that or something else. Also will obtain PFTs. Physical deconditioning may be playing a part. Postnasal drip with congestion from that could be a part. Coronary disease has been ruled out by catheterization. 12/01/2016 normal PFTs normal O2 saturation. Normal right ventricular pressure noted on echo. Negative CT including PE protocol. No pulmonary cause found for dyspnea. There may be some physical deconditioning. Anemia is mild and should not cause dyspnea on its own. 12/02/2016 she does have mild hypoxemia with a PO2 66 on room air. We are going to check some exercise O2 sat. See if she needs oxygen at home. Her echo did show borderline to mild pulmonary hypertension with estimated peak urinary artery pressure of around 38. If her symptoms persist a right heart cath might be in order. Current Visit: Yes Qualifiers: Dyspnea type: dyspnea on exertion Qualified Code(s): R06.09 - Other forms of dyspnea (4) Chronic anticoagulation Status: Chronic Assessment and plan: She has been on Coumadin for 25+ years. She is compliant with her PT/INR checked. Current Visit: Yes (5) History of DVT (deep vein thrombosis) Status: Chronic Assessment and plan: Legs are not swollen or painful at present. Will obtain ultrasound to be sure there is no persistent DVT. 12/01/2016 no signs of any active DVT or pulmonary emboli. Agree with lifelong anticoagulation. Current Visit: Yes
--- NOTE | 2016-12-02 08:17 | EKG Report ---
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
[2016-12-02 09:15] LABS: Albumin (SPE) 3.3 G/DL (3.2-5.3); Albumin (SPE) Rel % 58.6 %; Alpha 1 (SPE) 0.2 G/DL (0.1-0.4); Alpha 2 (SPE) 0.9 G/DL (0.4-1.0); Alpha 2 (SPE) Rel % 15.6 %; Beta (SPE) 0.6 G/DL (0.5-1.1); Beta (SPE) Rel % 10.5 %; Gamma (SPE) 0.6 G/DL (0.7-1.7); Gamma (SPE) Rel % 11.3 %; Total Protein (Chem) 5.6 G/DL (6.4-8.3)
[2016-12-02] MEDS: VALSARTAN 160 MG TABLET PO SCH (09:41)
[2016-12-02] MEDS: hydroCHLOROthiazide 12.5 MG CAPSULE PO SCH (09:41)
[2016-12-02] MEDS: CITALOPRAM 20 MG TABLET PO SCH (09:41)
[2016-12-02] MEDS: MAGNESIUM CHLORIDE 64 MG TABLET PO SCH (09:41)
[2016-12-02] MEDS: FAMOTIDINE 20 MG TABLET PO SCH (09:41)
[2016-12-02] MEDS: METOPROLOL SUCCINATE XL 100 MG TABLET PO SCH (09:42)
[2016-12-02] MEDS: glyBURIDE 5 MG TABLET PO SCH (09:42)
[2016-12-02] MEDS: INSULIN ASPART PROTAMINE/ASPART 70/30 100 UNIT/ML SUBCUT SCH (09:42)
[2016-12-02] MEDS: INSULIN REGULAR 100 UNIT/ML SUBCUT SCH ×2 (09:42→12:28)
[2016-12-02] MEDS: SOLIFENACIN 5 MG TABLET PO SCH (09:46)
--- NOTE | 2016-12-02 09:49 | Gastrointestinal Progress Note ---
<Bhakti Delacruz - Last Filed: 12/02/16 09:47> Assessment and Plan (1) Elevated LFTs Status: Acute Assessment and plan: 12/02-LFTs are unremarkable today. AFP level is unremarkable as well. Continue to monitor this time. Plan an addendum to follow by Dr. Ortiz. 12/01-admitted with shortness of breath with continued workup regarding this, with findings of mildly elevated transaminases with no prior history of this or liver disease. Abdominal ultrasound without acute findings. Pancytopenia workup pending with Dr. Ariza. Father plan an addendum to followed by Dr. Ortiz. Current Visit: Yes (2) Chronic diarrhea Status: Acute Assessment and plan: 12/02-no reports of diarrhea this morning. Can trial WelChol or Questran if diarrhea continues at this time. Plan an addendum to follow Dr. Ortiz. 12/01-several year history of several loose diarrhea stools daily, without melena or hematochezia. Workup at [facility] 2 years ago with colonoscopy with no negative findings. Occasional nocturnal defecation with incontinence. Obtain endoscopy records from [facility]. Plan an addendum to followed by Dr. Ortiz. Current Visit: Yes Gastroenterology - PN: Subj Interval history: CC: Elevated LFTs, diarrhea Patient is seen, awake and alert with family at bedside. 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 Her LFTs are noted to be normal today. She does not report any diarrhea this morning. Abdomen is soft, nontender. Tolerating her diet well at this time. Discussed again plan with the patient due to she cannot recall from the conversation with Dr. Ortiz last night, but we will continue to monitor LFTs and if they remain elevated we will then entertain the idea of a liver biopsy. Also discussed discontinuing her Crestor at this time as possible source of her elevated enzymes. Also discussed initiation of WelChol or Questran for her diarrhea in lieu of prior cholecystectomy. No plans for colonoscopy at this time. ROS: Denies shortness of breath or chest pain Exam (Progress Note) - Constitutional Vitals: Period Temp Pulse Resp BP Sys/Manning Pulse Ox Last 24 Hr 97.5 F-99.1 F 63-80 18-20 105-135/55-91 93-100 General appearance: normal weight, no acute distress - Head Head exam: Present: normal inspection, normocephalic - Eye Eye exam: Present: other (Lids and conjunctive are unremarkable). Absent: scleral icterus - ENT ENT exam: Present: normal exam, normal oropharynx - Neck Neck exam: Present: normal inspection - Respiratory Respiratory exam: Present: clear to auscultation bilaterally. Absent: rales, rhonchi, wheezes - Cardiovascular Cardiovascular exam: Present: regular rate and rhythm. Absent: diastolic murmur , JVD, systolic murmur - GI/Abdominal GI/Abdominal exam: Present: normal bowel sounds, soft. Absent: ascites, distended, mass, organomegaly, tenderness - Extremities Exam Extremities exam: Present: normal inspection, full ROM - Back Exam Back exam: Present: normal inspection - Neurological Exam Neurological exam: Present: alert, oriented X3 - Psychiatric Psychiatric exam: Present: normal affect, normal mood - Skin Skin exam: Present: normal color, warm, dry Results - Labs CBC & BMP: 12/02/16 03:42 12/02/16 03:42 Lab Results: I have reviewed the past 24 hour labs Specialty Discharge - Follow Up or Referrals Follow up with: Bhupinder Dougherty MD [Physician] - 02/27/17 2:00 pm (3 month for borderline Pulmonary hypertension.) <Mamadou Ortiz - Last Filed: 12/02/16 12:01> Exam (Progress Note) - Constitutional Vitals: Period Temp Pulse Resp BP Sys/Manning Pulse Ox Last 24 Hr 97.5 F-99.1 F 63-80 18-20 105-135/55-91 93-100 Results - Labs CBC & BMP: 12/02/16 03:42 12/02/16 03:42
[2016-12-02 11:09] LABS: Folate 14.1 NG/ML (5.4-24.0)
[2016-12-02 12:39] VITALS: BP 123/68
[2016-12-02 12:51] LABS: Hepatitis A Ab IgM Quant 0.06 Index; Hepatitis A Ab IgM Result Negative (Negative); Hepatitis B Core IgM Quant 0.12 Index; Hepatitis B Core IgM Result Negative (Negative); Hepatitis B Surface Ag Quant 0.49 Index; Hepatitis B Surface Ag Result Negative (Negative); Hepatitis C Virus Ab Quant 0.02 Index; Hepatitis C Virus Ab Result Negative (Negative)
--- NOTE | 2016-12-02 13:03 | Discharge Summary ---
Imer Keen Lesley, NAILA, am scribing for, and in the presence of, Kaykay Urias DO 12:55. Hospital Course - Hospital Course Hospital Course: Summary: Ms. 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 The patient had at least 3 weeks of severe dyspnea that has even altered her ability to speak in sentences. 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 Brambila clinic the patient has noticed progressive shortness of breath. Because of her history of DVT and pulmonary emboli on chronic anticoagulation therapy she has been attuned to her pulse oxes and states that they have been all okay. She states that the discomfort that she has in her chest and she is very reluctant to use the word pain along with the shortness of breath is distinctly different than the discomfort that she had with her previous pulmonary emboli. She presented to the emergency room at [facility] today from Dr. Brambila's clinic at his insistence because she was unable to speak in complete sentences. Left heart cath done 11/29/16 shows no significant obstructive coronary artery disease and a right dominant system. Ejection fraction 70%. Chest x-ray unremarkable, minor scarring noted in the lung bases. EKG shows sinus rhythm. X-ray of the sinuses, venous Dopplers, abdominal ultrasound result are all pending. Echocardiogram reveals LVEF 60%, grad 2 diastolic dysfunction, TR velocities suggest RVSP of 38mmHg plus the RA pressure. Trace pulmonic insufficiency. Complete pulmonary workup including negative CT including PE protocol and PFTs. Gastroenterology consult done because of elevated liver enzymes, abdominal ultrasound was negative for splenomegaly, the liver was unremarkable, postsurgical, bile duct at 7 mm noted. The patient will stop her Crestor as per GI recommendations, and the patient will follow up with Dr. Ortiz in clinic to follow LFTs. The patient was also seen by hematology for workup of mild pancytopenia which is pending. The patient's INR today is 2.1. Patient has been instructed to stop her Coumadin and she will start Xarelto at 20 mg daily for life. Patient will follow with Dr. Dougherty in 3 months. Patient to follow-up with primary care in 2 weeks. The decision to change from warfarin to Xarelto was made based on the fact the patient has had recurrent DVTs and difficult to control the INRs. Prescription will be hand written or printed for her so she can get her medications filled at [facility]. Her INR at the time of discharge is as above will resume or start the Xarelto in the a.m. of 12/03/2016. She had transiently elevated hepatic transaminases which normalized. She been seen by Dr. Anibal Ortiz for this. The patient will go home on her medications as prior to admission plus those recommended and change as above. - Time spent with patient Time with patient DS: Greater than 30 minutes (Record review, assessment, and documentation) Diagnosis - Discharge Diagnosis (1) Dyspnea Status: Acute (2) Chronic anticoagulation Status: Chronic (3) Diabetes mellitus Status: Chronic (4) Essential hypertension Status: Chronic (5) History of DVT (deep vein thrombosis) Status: Chronic (6) Dyslipidemia Status: Chronic (7) History of pulmonary embolism Status: Acute (8) Hypoxemia Status: Acute (9) Hoarseness Status: Chronic (10) Venous insufficiency Status: Chronic (11) Hypertension Status: Chronic Specialty Discharge - Follow Up or Referrals Follow up with: Bhupinder Dougherty MD [Physician] - 02/27/17 2:00 pm (3 month for borderline Pulmonary hypertension.) Discharge Plan - Discharge Data Disposition: Disch To Home/Self Care Condition at Discharge: Stable Discharge Diet: heart healthy Activity: resume usual activities as tolerated Hygiene: may shower Weight Bearing at Discharge: full weight bearing Contact your physician if you experience:: fever over 101, Redness or swelling ( Post cath instructions), Shortness of breath, Bleeding - Discharge Medications New Rivaroxaban [Xarelto] 20 mg PO DAILY W/BREAKFAST #90 tablet Rosuvastatin [Crestor] 20 mg PO BEDTIME #30 tablet Magnesium Chloride [Slow Mag] 64 mg PO BID tablet Continue Ranitidine Tab [Zantac Tab] 150 mg PO DAILY glyBURIDE [Glyburide] 5 mg PO 1000,1700 Valsartan/Hydrochlorothiazide [Valsartan-Hctz 320-12.5 mg Tab] 1 each PO DAILY Solifenacin Succinate [Vesicare] 10 mg PO DAILY Metformin HCl 1,000 mg PO BID Insulin Aspart Prot/Insuln Asp [NovoLOG Mix 70-30 FlexPen] 13 units SUBCUT QPM Gabapentin 300 mg PO BEDTIME Citalopram Hydrobromide [Citalopram HBr] 20 mg PO DAILY Metoprolol Succinate 100 mg PO BID Insulin Aspart Prot/Insuln Asp [NovoLOG Mix 70-30 FlexPen] 17 units SUBCUT QAM Cholecalciferol (Vitamin D3) [Vitamin D3] 50,000 unit PO Q7D Discontinued Warfarin [Coumadin] 2 mg PO SUTUTHSA Warfarin [Coumadin] 3 mg PO MOWEFR Rosuvastatin Calcium [Rosuvastatin Calcium] 20 mg PO BEDTIME - Follow Up or Referral Follow Up: Bhupinder Dougherty MD [Physician] - 02/27/17 2:00 pm (3 month for borderline Pulmonary hypertension.) - Forms/Instructions Instructions: Warfarin (By mouth) Exam - Constitutional Vitals: Period Temp Pulse Resp BP Sys/Manning Pulse Ox Last 24 Hr 97.5 F-99.1 F 63-80 18-20 105-135/55-91 93-100 Exam: General: Appears well with no apparent distress. Pleasant and cooperative. Appears comfortable. HEENT: PERRL, normocephalic, atraumatic. Mucous membranes moist. No jaundice noted. Conjunctiva moist and clear, sclerae anicteric. Neck: No JVD/HJR, no thyromegaly or lymphadenopathy noted. No carotid bruit appreciated. Cardiac: Regular rate and rhythm. No murmur rub or gallop. PMI is nondisplaced. Lungs: Clear to auscultation without accessory muscle use to assist the respiratory pattern. Oxygen not in use, mild BEE from restroom to bed. She is tachypneic at rest Abdomen: Soft, bowel sounds normoactive. Nontender and nondistended. No abdominal bruit or thrill noted. No masses noted. Musculoskeletal: No fluid collection. Full range of motion is noted to all extremities in bed. Extremities: No clubbing, cyanosis noted. Trace edema noted to BLE. Upper extremity pulses 2+. Lower extremity pulses 2+. Capillary refill less than 3 seconds. Right groin soft, no bleeding, no bruit auscultated. She has very impressive superficial venous varicosities. Her cardiac catheterization site looks good Skin: No unusual lesions or rashes. No skin breakdown appreciated. Neuro: Awake, alert and oriented 3. Moves all extremities well without hemiparesis or paralysis. No essential tremor is appreciated. Discharge Results Procedures and tests throughout hospitalization: Pending Orders 12/01/16 05:30 Hepatitis Panel Routine 12/01/16 18:32 Ceruloplasmin Routine Mitochondrial Antibody (M2) Routine Labs on day of discharge: Labs from last 24 hours 12/02/16 12/02/16 12/02/16 08:16 03:42 03:42 WBC RBC Hgb Hct MCV MCH MCHC RDW Plt Count MPV Neut % (Auto) Lymph % (Auto) [place] % (Auto) Eos % (Auto) Baso % (Auto) Neut # (Auto) Lymph # (Auto) [place] # (Auto) Eos # (Auto) Baso # (Auto) Immature Gran % Nucleated RBC % Immature Gran # Nucleated RBCs # Immature Plt Fraction INR PT Patient/Control Mix Sodium 143 Potassium 3.5 Chloride 106 Carbon Dioxide 29 Anion Gap 11.5 BUN 13 Creatinine 1.10 H GFR Calculation 64 BUN/Creatinine Ratio 11.00 Glucose 117 H POC Glucose 184 H Calculated Osmolality 285.0 Calcium 7.7 L Magnesium 1.3 L Total Bilirubin 0.40 Direct Bilirubin 0.140 Indirect Bilirubin 0.3 AST 30 ALT 50 Alkaline Phosphatase 51 Total Protein 5.7 L Albumin 2.9 L Tumor Marker AFP Vitamin B12 Folate Pro Electrophoresis Int Serum Total Protein PEP Albumin (PEP) Albumin (relative) Jzpoj-9-Ijqddeuw Nnoxg-4-Pklbrcop rel Iafxm-0-Lkqqsjxw Ayfiw-0-Gtwlkvxx rel Tbxl-4-Ktnrsppb Pvym-8-Swrzhlem rel Gamma Globulins Gamma Globulins rel MARY Screen Free [place] Light Chains Free Lambda Light Chain Free [place]/Lambda Ratio 12/02/16 12/02/16 12/01/16 03:42 03:42 20:09 WBC 4.3 RBC 3.73 L Hgb 11.1 L Hct 33.3 L MCV 89.3 MCH 30 MCHC 33.3 RDW 14.3 Plt Count 104 L MPV 13.1 H Neut % (Auto) 45.2 Lymph % (Auto) 36.3 [place] % (Auto) 14.5 H Eos % (Auto) 3.0 Baso % (Auto) 0.5 Neut # (Auto) 1.9 Lymph # (Auto) 1.6 [place] # (Auto) 0.6 Eos # (Auto) 0.1 Baso # (Auto) 0.0 Immature Gran % 0.5 Nucleated RBC % 0.0 Immature Gran # 0.02 Nucleated RBCs # 0.00 Immature Plt Fraction 0.0 INR 2.1 PT Patient/Control Mix 23.4 D Sodium Potassium Chloride Carbon Dioxide Anion Gap BUN Creatinine GFR Calculation BUN/Creatinine Ratio Glucose POC Glucose 318 H Calculated Osmolality Calcium Magnesium Total Bilirubin Direct Bilirubin Indirect Bilirubin AST ALT Alkaline Phosphatase Total Protein Albumin Tumor Marker AFP Vitamin B12 Folate Pro Electrophoresis Int Serum Total Protein PEP Albumin (PEP) Albumin (relative) Qeptz-5-Vkfhgmaw Dfnou-2-Cbijrceo rel Phzvp-5-Vmnzrweo Wkprr-6-Mcaqmvtw rel Xfav-9-Cbmxdahq Lafb-0-Paklbzgc rel Gamma Globulins Gamma Globulins rel MARY Screen Free [place] Light Chains Free Lambda Light Chain Free [place]/Lambda Ratio 12/01/16 12/01/16 12/01/16 18:32 15:55 05:06 WBC RBC Hgb Hct MCV MCH MCHC RDW Plt Count MPV Neut % (Auto) Lymph % (Auto) [place] % (Auto) Eos % (Auto) Baso % (Auto) Neut # (Auto) Lymph # (Auto) [place] # (Auto) Eos # (Auto) Baso # (Auto) Immature Gran % Nucleated RBC % Immature Gran # Nucleated RBCs # Immature Plt Fraction INR PT Patient/Control Mix Sodium Potassium Chloride Carbon Dioxide Anion Gap BUN Creatinine GFR Calculation BUN/Creatinine Ratio Glucose POC Glucose 317 H Calculated Osmolality Calcium Magnesium Total Bilirubin Direct Bilirubin Indirect Bilirubin AST ALT Alkaline Phosphatase Total Protein Albumin Tumor Marker AFP 1.3 Vitamin B12 919 H Folate 14.1 Pro Electrophoresis Int Serum Total Protein PEP 5.6 L Albumin (PEP) 3.3 Albumin (relative) 58.6 Aalgm-6-Cllapaxo 0.2 Qfwax-5-Beccaikn rel 4.0 Ojwrk-0-Gwkaewgn 0.9 Xtrfy-8-Txtaewcs rel 15.6 Gcdn-1-Rkieduso 0.6 Kdom-5-Xcilcrgc rel 10.5 Gamma Globulins 0.6 L Gamma Globulins rel 11.3 MARY Screen Negative (<1:160) Free [place] Light Chains 5.28 H Free Lambda Light Chain 3.54 H Free [place]/Lambda Ratio 1.49 - Imaging and Cardiology Cardiology Procedure: image reviewed by me, report reviewed by me Procedure: Chest x-ray: report reviewed by me, CT - chest: report reviewed by me , image reviewed by me, Ultrasound: report reviewed by me, X-ray: report reviewed by me DS: Provider Consults: 11/29/16 16:33 Consult to Physician [CONS] Routine Comment: Dyspnea with h/o "lung fungus and PE" Consulting Provider: Bhupinder Dougherty 11/30/16 08:28 Consult to Physician [CONS] Routine Comment: pancytopenia Consulting Provider: Consult to Specialist Group: Hematology When should Consulting Provider be notified: Now Person Notified: Rebecca Date Notified: 11/30/16 Time Notified: 09:40 12/01/16 13:42 Consult to Physician [CONS] Routine Comment: abnormal LFTs Consulting Provider: Mamadou Ortiz Person Notified: Annamaria Date Notified: 12/01/16 Time Notified: 13:55 Expected date of discharge: 12/02/16 Bridgett Keen Shea, , personally performed the services described in this documentation, ascribed by Cheryl Willams NP in my presence, and it is both accurate and complete [id number] .
[2016-12-03] MEDS ORDERED: RIVAROXABAN 20 MG TABLET PO SCH (08:00)
[2016-12-04 10:50] LABS: Mitochondrial Antibody (M2) <0.1 U
[2016-12-07 08:26] LABS: Ceruloplasmin 22 mg/dL (18-53)
== END 2016-12-02 14:48 | disposition home or self-care (01) | DRG 204 ==
LOC: EDUNIT# → EDBD → N.ED 12:16 → N.TELEN 15:51
PROVIDERS: ADMIT Internal Medicine Cardiovascular Disease; ATTEND Internal Medicine Cardiovascular Disease
PROC: CLCCHCL (ICD-10-PCS; 2016-11-29 16:30)